=== PATIENT | female | born 1940 | race Caucasian/White ===

== ENCOUNTER → 2020-04-02 10:09 | Outpatient (BNVA) | payer MEDICARE, MEDICAID, SELFPAY | PROVIDERS: Family Provider Nurse Practitioner; PCP Nurse Practitioner; Visit Provider Nurse Practitioner | DX: N39.46 Mixed incontinence (principal); F41.9 Anxiety disorder, unspecified; E78.5 Hyperlipidemia, unspecified | CPT/HCPCS: 80053; 80061; 81000; 84443 ==

== ENCOUNTER 2020-04-30 10:27 | Outpatient (CLI) | payer MEDICARE, MEDICAID, SELFPAY ==
--- NOTE | 2020-04-30 10:15 | US_ITS ---
WS: [id number] ULTRASOUND ABDOMEN LIMITED CLINICAL INFORMATION: elevated liver enym COMPARISON: None. FINDINGS: Liver Size: Normal. Craniocaudal length: 10.1 cm. Echogenicity: Coarse Surface nodularity: None. Mass (size and location): None. Bile ducts Intrahepatic ducts: Normal. Common bile duct diameter: 0.2 cm. Gallbladder Normal. Gallstones: None. Gallbladder sludge: None. Gallbladder wall thickening: None. Pericholecystic fluid: None. Sonographic Osborne sign: Absent. Pancreas Normal as visualized. Right kidney: Normal. Hydronephrosis: None. Size: 10.0 cm x 4.3 cm x 4.0 cm. Abdominal aorta and IVC Visualized portions are normal. Ascites: None. US/US liver [id number] IMPRESSION: 1. Mild diffuse fatty infiltration liver. 2. Normal gallbladder. 3. No hydronephrosis right kidney.
[2020-04-30 13:15] LABS: Hepatitis A Antibody IgM Non-Reactive (Nonreactive); Hepatitis B Core AB, Total Non-Reactive (Nonreactive); Hepatitis B Surface AB 4.1 (0-8.5); Hepatitis B Surface Antigen Non-Reactive (Nonreactive); Hepatitis C Virus Antibody Non-Reactive (Nonreactive)
== END 2020-04-30 10:28 | disposition home or self-care (01) ==
LOC: RAD 10:32
PROVIDERS: PCP Nurse Practitioner; Visit Provider Nurse Practitioner
DX: R74.8 Abnormal levels of other serum enzymes (principal); K76.0 Fatty (change of) liver, not elsewhere classified
CPT/HCPCS: 36415; 76705; 86705; 86706; 86709; 86803; 87340

== ENCOUNTER → 2020-05-29 14:12 | Outpatient (BNVA) | payer MEDICARE, MEDICAID, SELFPAY | PROVIDERS: PCP Nurse Practitioner; Visit Provider Nurse Practitioner Family | DX: Z11.59 Encounter for screening for other viral diseases (principal) | CPT/HCPCS: 87635 ==

== ENCOUNTER → 2020-10-14 10:40 | Outpatient (BNVA) | payer MEDICARE, MEDICAID, SELFPAY | PROVIDERS: PCP Nurse Practitioner; Visit Provider Nurse Practitioner | DX: I10 Essential (primary) hypertension (principal); N39.46 Mixed incontinence | CPT/HCPCS: 80053; 80061; 81000; 84443 ==

== ENCOUNTER → 2021-01-15 14:20 | Outpatient (BNVA) | payer MEDICARE, MEDICAID, SELFPAY | PROVIDERS: PCP Nurse Practitioner; Referring Provider Nurse Practitioner; Visit Provider Nurse Practitioner Family | DX: N39.46 Mixed incontinence (principal) | CPT/HCPCS: 81003 ==

== ENCOUNTER → 2021-05-04 09:59 | Outpatient (BNVA) | payer MEDICARE, MEDICAID, SELFPAY | PROVIDERS: PCP Nurse Practitioner; Visit Provider Internal Medicine Cardiovascular Disease | DX: I10 Essential (primary) hypertension (principal); Z86.73 Personal history of transient ischemic attack (TIA), and cerebral infarction without residual deficits; R09.89 Other specified symptoms and signs involving the circulatory and respiratory systems | CPT/HCPCS: 80048 ==

== ENCOUNTER 2021-05-25 08:45 | Outpatient (CLI) | payer MEDICARE, MEDICAID, SELFPAY ==
--- NOTE | 2021-05-25 09:30 | USCV_ITS ---
Geno Jones Age: 80 Gender: F : 1940 Exam Date: 05/25/2021 09:20 Ordering Phys: Bailey Ortiz Technologist: Kelli Angelo [place]am Location[place] [facility] [place]ication: HISTORY OF CVA BP: 130 / 64 HR: 50 Rhythm: Sinus Technical Quality: Adequate MEASUREMENTS (Male / Female) Normal Values 2D ECHO LV Diastolic Diameter PLAX 3.5 cm 4.2 - 5.9 / 3.9 - 5.3 cm LV Systolic Diameter PLAX 2.2 cm LV Chamber Size 3.3 cm IVS Diastolic Thickness 2.0 cm 0.6 - 1.0 / 0.6 - 0.9 cm IVS Systolic Thickness 1.6 cm LVPW Diastolic Thickness 1.7 cm 0.6 - 1.0 / 0.6 - 0.9 cm LVPW Systolic Thickness 1.7 cm RV Chamber Size 3.2 cm LVOT Diameter 2.1 cm LV Ejection Fraction 2D Teich 69.3 % LV Ejection Fraction MOD 2C 3.2 % LV Ejection Fraction 2C AL 4.4 % LA Diameter 4.5 cm LA Width 3.2 cm LA Height 5.9 cm RA Width 4.6 cm RA Height 4.9 cm Aorta at Sinotubular Diameter 3.2 cm M-MODE LV Diastolic Diameter MM 5.3 cm 4.2 - 5.9 / 3.9 - 5.3 cm LV Systolic Diameter MM 2.8 cm LV Ejection Fraction MM Teich 78.1 % IVS Diastolic Thickness MM 1.1 cm 0.6 - 1.0 / 0.6 - 0.9 cm IVS Systolic Thickness MM 1.8 cm LVPW Diastolic Thickness MM 1.2 cm 0.6 - 1.0 / 0.6 - 0.9 cm LVPW Systolic Thickness MM 2.0 cm Aortic Annulus Diameter 3.0 cm LA Ao Ratio MM 1.8 MV E Point Septal Separation 0.4 cm DOPPLER AV Peak Velocity 236.0 cm/s LVOT Peak Velocity 164.0 cm/s AV Area Cont Eq vti 2.1 cm squared AV Area Cont Eq pk 2.4 cm squared MV Area PHT 1.4 cm squared Mitral E to A Ratio 1.2 MV E' Velocity 95.5 cm/s Mitral E to MV E' Ratio 33.2 Mitral E to LV E' Lateral Ratio 37.1 Mitral E to LV E' Septal Ratio 29.9 TR Peak Velocity 267.8 cm/s TR Peak Gradient 28.7 mmHg TR Mean Velocity 214.6 cm/s TR Mean Gradient 20.1 mmHg TR Velocity Time Integral 101.4 cm TV Peak E Velocity 59.0 cm/s Right Atrial Pressure 3.0 mmHg Pulmonary Artery Systolic Pressu 31.7 mmHg PV Peak Velocity 66.0 cm/s RV Acceleration Time 0.1 s RV Ejection Time 0.4 s RV AcT/ET 0.4 FINDINGS Left Ventricle Normal left ventricular size and systolic function, EF 78 %. Moderate left ventricular hypertrophy. No regional wall motion abnormalities. Right Ventricle The right ventricle is normal in size and function. Right Atrium The right atrium is normal in size. Left Atrium Mildly increased left atrial size. Mitral Valve Thickened mitral valve. Moderate mitral valve regurgitation. Moderate mitral annular calcification. Aortic Valve Thickened aortic valve. Tricuspid Valve Trace tricuspid valve regurgitation. Pulmonic Valve No gross abnormalities noted Pericardium Normal pericardium without effusion. Aorta Normal ascending aorta dimension. CONCLUSIONS Normal left ventricular size and systolic function, EF 78 %. Moderate left ventricular hypertrophy. No regional wall motion abnormalities. Thickened mitral valve. Moderate mitral valve regurgitation. Moderate mitral annular calcification. Mildly increased left atrial size. Mild aortic valve stenosis with a valve area of 2.1 cm squared Trace tricuspid valve regurgitation. Estimated pulmonary artery peak systolic pressure was 32 mmHg There is no pericardial effusion. There are no intracardiac masses. Compared to the previous study from 07/24/2019, there is development of mild aortic valve stenosis Dr Silva Renner MD [facility] (Electronically Signed) Final Date: 25 May 2021 16:48 S
--- NOTE | 2021-05-25 10:15 | USCV_ITS ---
Geno Jones Age: 80 Gender: F : 1940 Exam Date: 05/25/2021 09:00 Ordering Phys: Bailey Ortiz Technologist: Kelli Angelo Exam Location: [facility] – [place] Indication: CVA HISTORY Risk Factors: Unknown Previous Vascular Surgery: Unknown Right Brachial BP: / Left Brachial BP: / Right Left Velocity (cm/s) Spectral Plaque Velocity (cm/s) Spectral Plaque Syst/Diast Broadening Syst/Diast Broadening 97.00/ 22.10 Prox CCA 73.00 / 18.70 47.30/ 8.50 Hetro Mid CCA 49.70 / 12.90 57.80/ 13.80 Hetro Distal CCA 44.40 / 14.30 Hetro 51.10/ 14.10 Hetro Prox ICA 53.20 / 15.80 Hetro 76.70/ 20.20 Mid ICA 104.50/ 31.50 76.70/ 20.20 Distal ICA 141.70/ 40.30 104.30 Hetro ECA 78.90 1.62 ICA/CCA 2.85 Antegrade Vertebral Antegrade 29.30/ 3.60 cm/s 34.70/ 7.60 cm/s Bi Subclavian Bi 113.2 115.2 0 0 FINDINGS Mild to moderate plaquesat the bifurcations bilaterally Elevated velocity in the left distal ICA Antegrade flow in the vertebral arteries bilaterally. Normal Doppler flow velocities in the external carotid, subclavian and vertebral arteries bilaterally CONCLUSIONS 1. Mild to moderate plaques at the bifurcations with elevated velocities, suggestive of less than 50% stenosis 2. Elevated velocity in the left distal ICA, may suggest hemodynamically significant stenosis. Consider CTA to better evaluate the distal artery, if clinically indicated. 3. Consider CTA, if clinically indicated, to better evaluate the distal artery Dr Silva Renner MD [facility] (Electronically Signed) Final Date: 25 May 2021 15:02 S
== END 2021-05-25 08:46 | disposition home or self-care (01) ==
LOC: US 08:47
PROVIDERS: PCP Nurse Practitioner; Visit Provider Nurse Practitioner Family
DX: I42.2 Other hypertrophic cardiomyopathy (principal); R09.89 Other specified symptoms and signs involving the circulatory and respiratory systems; I65.23 Occlusion and stenosis of bilateral carotid arteries; Z86.73 Personal history of transient ischemic attack (TIA), and cerebral infarction without residual deficits; I08.3 Combined rheumatic disorders of mitral, aortic and tricuspid valves
CPT/HCPCS: 93306; 93880

== ENCOUNTER 2021-06-12 07:46 | Outpatient (CLI) | payer MEDICARE, MEDICAID, SELFPAY ==
--- NOTE | 2021-06-12 08:00 | CT_ITS ---
WS: [id number] Exam: CT angio neck [id number] Date/Time of Exam: 06/12/2021 7:53 AM Reason For Exam: R09.89 - Other specified symptoms and signs involving the... DLP: 875.[address] scans at [facility] use at least one of these dose optimization techniques: automat ed exposure control; mA and/or kV adjustment per patient size (includes targeted exams where dose is matched to clinical indication); or iterative reconstruction. Compared to previous study 08/04/2019. CT angiography of the neck. The neck is evaluated in the axial plane with sagittal, coronal and 3-D r eformatted images following uneventful intravenous administration of contrast. The right and left common carotid arteries are widely patent. There is minimal stenosis of the proxim al left ICA estimated at 20-30%. The right ICA is widely patent. There was no evidence of aneurysm or dissection. The great vessels are patent at the level of the aortic arch. The vertebral arteries are patent. Calcification of the intracranial internal carotid arteries noted. Images of the neck reveal no mass or significant lymphadenopathy. No superior mediastinal lymphadenop athy noted. Upper lung zones are clear. Limited images of the brain demonstrate no mass or acute blee d. CT/CT angio neck [id number] IMPRESSION: 1. Mild stenosis of the proximal left ICA estimated between 20 and 30%. 2. The bilateral common carotid arteries and the right extracranial internal ca rotid artery were patent without critical stenosis or occlusion. 3. The bilateral vertebral arteries are patent. 4. No artery dissection or aneurysm.
[2021-06-12] MEDS: iohexol 350 mg/mL 100 mL Btl IV (08:27)
== END 2021-06-12 07:47 | disposition home or self-care (01) ==
PROVIDERS: PCP Nurse Practitioner; Visit Provider Nurse Practitioner Family
DX: R09.89 Other specified symptoms and signs involving the circulatory and respiratory systems (principal); Z86.73 Personal history of transient ischemic attack (TIA), and cerebral infarction without residual deficits; I65.23 Occlusion and stenosis of bilateral carotid arteries
CPT/HCPCS: 70498; Q9967

== ENCOUNTER → 2021-07-01 15:59 | Outpatient (BNVA) | payer MEDICARE, MEDICAID, SELFPAY | PROVIDERS: PCP Nurse Practitioner; Visit Provider Nurse Practitioner Family | DX: N39.46 Mixed incontinence (principal) | CPT/HCPCS: 81003 ==

== ENCOUNTER 2021-07-28 16:19 | Emergency (ER) | payer MEDICARE, MEDICAID, SELFPAY ==
[2021-07-28 16:35] VITALS: BP 160/71; PULSE 59; RESP 16; TEMP 36.8; O2SAT 94
--- NOTE | 2021-07-28 16:47 | PC.NURSE ---
Noted bruising and discoloration to right lower leg. hurts all the time per pt.
--- NOTE | 2021-07-28 16:51 | USR_ITS ---
PROCEDURE INFORMATION: Exam: US Duplex Right Lower Extremity Veins, Limited Exam date and time: 07/28/2021 4:51 PM Age: 81 years old Clinical indication: Injury or trauma; Fall; Blunt trauma (contusions or hematomas); Right; Lower extremity, lower leg level; Vessel not specified; Additional info: Recent injury; Now swelling/bruising TECHNIQUE: Imaging protocol: Real-time Duplex ultrasound of the Right Lower Extremity with 2-D park scale, color Doppler flow and spectral waveform analysis with image documentation. Limited exam was focused on the right lower extremity veins. COMPARISON: No relevant prior studies available. FINDINGS: Right deep veins: Unremarkable. The common femoral, femoral, proximal profunda femoral and popliteal veins are patent without thrombus. Normal Doppler waveforms. Normal compressibility and/or augmentation response. Right superficial veins: Unremarkable. Saphenofemoral junction is patent without thrombus. Soft tissues: Unremarkable. US/[place] [id number] IMPRESSION: No evidence of deep vein thrombosis. Radiation Dose CTDIVOL = (mGy): DLP = (mGy-cm)
--- NOTE | 2021-07-28 16:52 | ED_ITS ---
Documented by User: LORRI Rosales 07/28/21 16:53 HPI - Extremity Problem General: Chief complaint: Extremity Injury, Lower Stated complaint: Injury to Rt Knee Time Seen by Provider: 07/28/21 16:57 Source: patient Mode of arrival: ambulatory Limitations: no limitations History of Present Illness: HPI Narrative: Patient is a nice 81-year-old female who presents to ED today for evaluation of right lower leg swelling. Patient tells me she injured the extremity approximately a week ago. She states she has been ambulating on the extremity since without much discomfort however noticed over the past 24 to 48 hours swelling to the extremity and a red knot near her tibial plateau. She has also noticed some ecchymosis. She was told she needs to come to ED for DVT r/o. No SOB, chest pain, or difficulty breathing. PFSH ED PFSH: Medical History Anxiety ASHD (arteriosclerotic heart disease) Carotid stenosis, bilateral Dyslipidemia History of CVA (cerebrovascular accident) HTN (hypertension) Hypertrophic cardiomyopathy Mitral regurgitation Mixed incontinence urge and stress Obesity Surgical History History of bladder suspension procedure two time History of hysterectomy for benign disease History of tonsillectomy Family History Other Stroke Social History Smoking and tobacco status: never smoked Alcohol intake: never Marital status: Current occupational status: retired History of recent travel: No Course Vital Signs: Vital signs: Vital Signs Temperature 98.3 F 07/28/21 16:35 Pulse Rate 67 07/28/21 18:11 Respiratory Rate 18 07/28/21 18:11 Blood Pressure 168/77 07/28/21 18:11 Pulse Oximetry 94 07/28/21 18:11 Discharge Plan Discharge Patient Disposition: Home Clinical Impression: Contusion of leg, right Qualifiers: Encounter type: initial encounter Qualified Code(s): S80.11XA - Contusion of right lower leg, initial encounter Condition: Stable Prescriptions: No Action spironolactone 25 mg tablet 25 mg PO DAILY Qty: 30 RF: 5 aspirin 325 mg tablet 325 mg PO DAILY RF: 0 Mucinex DM 30-600 mg tablet extended release 12 hr 1 tab PO Q12H RF: 0 solifenacin 10 mg tablet 10 mg PO DAILY Qty: 30 RF: 6 sertraline [Zoloft] 25 mg tablet 25 mg PO DAILY Qty: 30 RF: 5 cetirizine [Zyrtec] 10 mg tablet 10 mg PO DAILY Qty: 30 RF: 5 clonidine HCl 0.1 mg tablet 0.05 mg PO .HS PRN (Reason: hypertensive emergency) RF: 0 atorvastatin 20 mg tablet 20 mg PO DAILY Qty: 90 RF: 3 metoprolol tartrate 50 mg tablet 50 mg PO BID Qty: 60 RF: 9 losartan 50 mg tablet 75 mg PO DAILY Qty: 45 RF: 6 Discharge Orders: Discharge ED (Routine); Ordered 07/28/21 Ordered By: Miguel A Mckeon Referrals: Dell Castano FNP-C [Primary Care Provider] - Discharge Diet: Regular Discharge Activity: Increase activity as tolerated Patient Instructions: Contusion in Adults (ED) Activity Restrictions/Additional Instructions: Follow-up with medical provider as directed in 7 to 10 days for reevaluation. Rest, ice and elevate right leg to help with symptoms. Continue taking all home medications as previously prescribed. Return to the ER or your medical provider if condition worsens. Please read and understand discharge instructions. Thank you for choosing [facility] for your healthcare needs today. Please realize this is an emergency room and that we are providing you with a medical screening exam and this may not be complete and all inclusive of all the testing and or work up that you may need to determine your ailment or severity of your illness. It is very important that you follow up as instructed or that you return to the Emergency Department should you have concerns or if your condition changes or worsens in any way. Sign Out Sign Out Data: Patient Sign Out occurred on 07/28/21 at 17:07. Patient's care was discussed, and care was transferred from to LORRI Guadalupe. Coding Level of Care Code ED Alcohol Law Enforcement Agent for Chg Fwd Exam Comprehensive Documented by User: LORRI Guadalupe 07/29/21 03:31 HPI - Extremity Problem General: Chief complaint: Extremity Injury, Lower Stated complaint: Injury to Rt Knee Time Seen by Provider: 07/28/21 16:57 History of Present Illness: Associated symptoms: Deny chest pain, fever(s) or rash Review of Systems Const: Denies: fever(s), chills or fatigue Eyes: Denies: change in vision or eye discomfort ENMT: Denies: throat pain, odynophagia, nasal discharge or nasal congestion Card: Denies: chest pain, palpitations, edema, swelling of feet/ankles, dyspnea on exertion or orthopnea Resp: Denies: dyspnea, productive cough or non-productive cough GI: Denies: abdominal pain, nausea, vomiting, diarrhea, constipation or hematochezia : Denies: flank pain, dysuria or hematuria Musc: Reports: extremity pain (Right leg pain-just below knee) and extremity swelling (Right leg swelling just below knee); Denies: neck pain or back pain Skin/Breast: Denies: rash or new lesions Neuro: Denies: headache(s), numbness in extremities or weakness in extremities PFSH ED PFSH: Medical History Anxiety ASHD (arteriosclerotic heart disease) Carotid stenosis, bilateral Dyslipidemia History of CVA (cerebrovascular accident) HTN (hypertension) Hypertrophic cardiomyopathy Mitral regurgitation Mixed incontinence urge and stress Obesity Surgical History History of bladder suspension procedure two time History of hysterectomy for benign disease History of tonsillectomy Family History Other Stroke Social History Smoking and tobacco status: never smoked Alcohol intake: never Marital status: Current occupational status: retired History of recent travel: No Physical Exam Const: COMMON NORMALS: no acute distress, patient oriented x3 and alert GENERAL APPEARANCE: cooperative and comfortable HENMT: COMMON NORMALS: normocephalic HEAD & SCALP: normocephalic MOUTH: Normal oral and palatal mucosa present THROAT: posterior oropharynx normal and uvula midline Neck/C-Spine: COMMON NORMALS: supple GENERAL: Yes normal visual inspection Resp: COMMON NORMALS: normal respiratory effort, No retractions, No use of accessory muscles and clear to auscultation bilaterally AUSCULTATION: clear to auscultation bilaterally Cardio: COMMON NORMALS: regular rate, regular rhythm, S1 normal heart sound present, S2 normal heart sound present, No gallops present (Cardio), No clicks present (Cardio), No murmurs present (Cardio) and Peripheral pulses 2+ throughout RATE: regular rate RHYTHM: regular rhythm HEART SOUNDS: S1 normal heart sound present and S2 normal heart sound present PERIPHERAL PULSES: Peripheral pulses 2+ throughout GI: COMMON NORMALS: Normal to inspection, nondistended, normoactive bowel sounds present, Soft to palpation, non-tender and no masses PALPATION: Yes Soft to palpation : COMMON NORMALS: Yes no CVA tenderness BLADDER/KIDNEY EXAM: Yes no CVA tenderness Back/Pelvis: COMMON NORMALS: no CVA tenderness Extremity: COMMON NORMALS: full ROM, no calf tenderness and no pedal edema NARRATIVE EXTREMITY EXAM: Right lower extremity?inferior to the kneecap?small swollen tender nodule likely a contusion. Patient is able to ambulate with no limp or pain and has full range of motion and right knee as well. GENERAL: Yes normal exam except as noted Neuro: COMMON NORMALS: patient oriented x3 and moves all extremities SENSORIUM/ORIENTATION: Yes alert Skin: GENERAL SKIN EXAM: dry skin Course Vital Signs: Vital signs: Vital Signs Temperature 98.3 F 07/28/21 16:35 Pulse Rate 67 07/28/21 18:11 Respiratory Rate 18 07/28/21 18:11 Blood Pressure 168/77 07/28/21 18:11 Pulse Oximetry 94 07/28/21 18:11 MDM - Extremity (Nontraumatic) MDM Narrative: Medical decision making narrative: Patient is a 81-year-old female comes to the ED with right lower extremity pain and swelling after injury. Patient sent by PCP to rule out blood clot. Patient denies any chest pain or shortness of breath. Patient is able ambulate without any pain and has full range of motion right knee. Small possible contusion inferior to the anterior aspect of the kneecap. No calf tenderness noted. Ultrasound venous duplex of right lower extremity shows no DVT or blood clots. Patient diagnosed with contusion of right leg and discharged home. She is told to rest, ice and elevate right leg to take [id number] Tylenol or Motrin for pain. Follow- up with PCP in 7 to 10 days for reevaluation. Return to ED precautions given. Patient understood and agreed with plan. Imaging Data^: US Vascular: Attestation: I personally reviewed and interpreted this imaging study as follows: Radiologist's impression: Ultrasound venous duplex of right lower extremity?prelim report?no DVT or blood clots seen. Discharge Plan Discharge Patient Disposition: Home Clinical Impression: Contusion of leg, right Qualifiers: Encounter type: initial encounter Qualified Code(s): S80.11XA - Contusion of right lower leg, initial encounter Condition: Stable Prescriptions: No Action spironolactone 25 mg tablet 25 mg PO DAILY Qty: 30 RF: 5 aspirin 325 mg tablet 325 mg PO DAILY RF: 0 Mucinex DM 30-600 mg tablet extended release 12 hr 1 tab PO Q12H RF: 0 solifenacin 10 mg tablet 10 mg PO DAILY Qty: 30 RF: 6 sertraline [Zoloft] 25 mg tablet 25 mg PO DAILY Qty: 30 RF: 5 cetirizine [Zyrtec] 10 mg tablet 10 mg PO DAILY Qty: 30 RF: 5 clonidine HCl 0.1 mg tablet 0.05 mg PO .HS PRN (Reason: hypertensive emergency) RF: 0 atorvastatin 20 mg tablet 20 mg PO DAILY Qty: 90 RF: 3 metoprolol tartrate 50 mg tablet 50 mg PO BID Qty: 60 RF: 9 losartan 50 mg tablet 75 mg PO DAILY Qty: 45 RF: 6 Discharge Orders: Discharge ED (Routine); Ordered 07/28/21 Ordered By: Miguel A Mckeon Referrals: Dell Castano FNP-C [Primary Care Provider] - Discharge Diet: Regular Discharge Activity: Increase activity as tolerated Patient Instructions: Contusion in Adults (ED) Activity Restrictions/Additional Instructions: Follow-up with medical provider as directed in 7 to 10 days for reevaluation. Rest, ice and elevate right leg to help with symptoms. Continue taking all home medications as previously prescribed. Return to the ER or your medical provider if condition worsens. Please read and understand discharge instructions. Thank you for choosing [facility] for your healthcare needs today. Please realize this is an emergency room and that we are providing you with a medical screening exam and this may not be complete and all inclusive of all the testing and or work up that you may need to determine your ailment or severity of your illness. It is very important that you follow up as instructed or that you return to the Emergency Department should you have concerns or if your condition changes or worsens in any way. Sign Out Sign Out Data: Patient Sign Out occurred on 07/28/21 at 17:07. Patient's care was discussed, and care was transferred from to LORRI Guadalupe. Coding Level of Care Code ED Alcohol Law Enforcement Agent for Ajith Fwd Exam Comprehensive
[2021-07-28 18:11] VITALS: BP 168/77; PULSE 67; RESP 18; O2SAT 94
== END 2021-07-28 18:13 | disposition home or self-care (01) ==
PROVIDERS: Emergency Provider Physician Assistant; PCP Nurse Practitioner
DX: S80.11XA Contusion of right lower leg, initial encounter (principal); Z79.82 Long term (current) use of aspirin; E78.5 Hyperlipidemia, unspecified; Z86.73 Personal history of transient ischemic attack (TIA), and cerebral infarction without residual deficits; I10 Essential (primary) hypertension; X58.XXXA Exposure to other specified factors, initial encounter; M79.89 Other specified soft tissue disorders
CPT/HCPCS: 93971; 99281

== ENCOUNTER → 2021-08-11 13:54 | Outpatient (BNVA) | payer MEDICARE, MEDICAID, SELFPAY | PROVIDERS: PCP Nurse Practitioner; Visit Provider Urology | DX: N39.46 Mixed incontinence (principal) | CPT/HCPCS: 81003 ==

== ENCOUNTER → 2021-10-28 10:11 | Outpatient (BNVA) | payer MEDICARE, MEDICAID, SELFPAY | PROVIDERS: PCP Nurse Practitioner; Visit Provider Nurse Practitioner | DX: F41.9 Anxiety disorder, unspecified (principal); J30.89 Other allergic rhinitis; Z86.73 Personal history of transient ischemic attack (TIA), and cerebral infarction without residual deficits | CPT/HCPCS: 80053; 85025 ==

== ENCOUNTER → 2021-12-28 15:27 | Outpatient (BNVA) | payer MEDICARE, MEDICAID, SELFPAY | PROVIDERS: PCP Nurse Practitioner; Visit Provider Nurse Practitioner Family | DX: I34.0 Nonrheumatic mitral (valve) insufficiency (principal); I10 Essential (primary) hypertension | CPT/HCPCS: 99214 ==

== ENCOUNTER → 2022-01-08 10:28 | Outpatient (BNVA) | payer MEDICARE, MEDICAID, SELFPAY | PROVIDERS: PCP Nurse Practitioner; Visit Provider Nurse Practitioner Family | DX: I10 Essential (primary) hypertension (principal); M25.461 Effusion, right knee; M25.561 Pain in right knee; G89.29 Other chronic pain; W19.XXXA Unspecified fall, initial encounter; Z78.9 Other specified health status; M25.661 Stiffness of right knee, not elsewhere classified | CPT/HCPCS: 73562; 80048 ==

== ENCOUNTER 2022-01-27 09:36 | Outpatient (CLI) | payer MEDICARE, MEDICAID, SELFPAY ==
--- NOTE | 2022-01-27 10:15 | MR_ITS ---
WS: [id number] MRI RIGHT KNEE NONCONTRAST TECHNIQUE: Axial PD, coronal PD fat sat, coronal PD, sagittal PD, and sagittal PD fat-sat images obta ined. CLINICAL INFORMATION: M25.461 - Effusion, right knee COMPARISON: None. FINDINGS: Distal quadriceps and patella tendons are intact. Hypertrophic patella. Normal ACL and PCL. Chronic t hinning of the medial and lateral meniscus. Complex tear involving the posterior horn medial meniscus extending to the articular surface. Blunting of the medial meniscus with peripheral extrusion. Benita l lateral meniscus. 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 Hyper trophic patella. Advanced chondromalacia patella. Medial and lateral patellar retinaculum are intact. Lobulated popliteal cyst measuring 1.8 x 2.0 x 4.9 CM. Nondisplaced fracture involving the anterior l ateral tibial plateau with associated edema. Minimal depression measuring 2 to 3 mm. Degenerative wendy ma involving the medial tibial plateau. LCL is intact. Normal popliteus tendon. Fluid and edema along the deep and superficial fibers of the MCL consistent with ligamentous injury. MCL appears grossly intact. MR/MR knee RT wo con* [id number] IMPRESSION: 1. Minimally depressed acute anterolateral tibial plateau fracture with diffus e edema. Depression measures 2-3 mm. Recommend correlation with anterolateral t ibial pain. 2. ACL and PCL are intact. 3. Complex tear involving the posterior horn medial meniscus extending to the articular surface. Peripheral extrusion of the medial meniscus. 4. Advanced tricompartmental arthritis with hypertrophic changes along the jenn nt line. 5. Grade 2 MCL ligamentous injury with fluid and edema along the deep superfic ial and deep fibers. MCL appears grossly intact. 6. LCL and popliteus are intact. 7. Lobulated popliteal cyst measuring 1.8 x 2.0 x 4.9 CM. Outbridge grading: grade III: partial-thickness cartilage loss with focal ulcer ation
== END 2022-01-27 09:37 | disposition home or self-care (01) ==
LOC: RAD 09:43
PROVIDERS: PCP Nurse Practitioner; Visit Provider Nurse Practitioner Family
DX: M25.461 Effusion, right knee (principal); S82.141A Displaced bicondylar fracture of right tibia, initial encounter for closed fracture; R60.0 Localized edema; S83.231A Complex tear of medial meniscus, current injury, right knee, initial encounter; X58.XXXA Exposure to other specified factors, initial encounter; M71.21 Synovial cyst of popliteal space [Baker], right knee
CPT/HCPCS: 73721

== ENCOUNTER 2022-02-03 14:58 | Outpatient (CLI) | payer MEDICARE, MEDICAID, SELFPAY | END 2022-02-03 14:59 | disposition home or self-care (01) | LOC: SPT 14:59 | PROVIDERS: PCP Nurse Practitioner; Visit Provider Specialist | DX: Z46.89 Encounter for fitting and adjustment of other specified devices (principal); S82.141D Displaced bicondylar fracture of right tibia, subsequent encounter for closed fracture with routine healing; X58.XXXD Exposure to other specified factors, subsequent encounter | CPT/HCPCS: 27532; 97760; L1832 ==

== ENCOUNTER → 2022-03-10 14:12 | Outpatient (BNVA) | payer MEDICARE, MEDICAID, SELFPAY | PROVIDERS: PCP Nurse Practitioner; Visit Provider Specialist | DX: S82.121D Displaced fracture of lateral condyle of right tibia, subsequent encounter for closed fracture with routine healing (principal); X58.XXXD Exposure to other specified factors, subsequent encounter | CPT/HCPCS: 73562 ==

== ENCOUNTER → 2022-04-26 13:12 | Outpatient (BNVA) | payer MEDICARE, MEDICAID, SELFPAY | PROVIDERS: PCP Nurse Practitioner; Visit Provider Specialist | DX: M17.11 Unilateral primary osteoarthritis, right knee (principal) | CPT/HCPCS: 20610; 73560; 73562; 73565; 99213; J7326 ==

== ENCOUNTER 2022-05-18 15:37 | Outpatient (CLI) | payer MEDICARE, MEDICAID, SELFPAY ==
--- NOTE | 2022-05-18 15:45 | USCV_ITS ---
Geno Jones Age: 81 Gender: F : 1940 Exam Date: 05/18/2022 15:59 Ordering Phys: Bailey Ortiz Technologist: ARASH [place]am [place] [facility] [place]: MR, AI BP: 170 / 67 HR: 66 Rhythm: Sinus Technical Quality: ADEQUATE MEASUREMENTS (Male / Female) Normal Values 2D ECHO LV Diastolic Diameter PLAX 2.3 cm 4.2 - 5.9 / 3.9 - 5.3 cm LV Systolic Diameter PLAX 1.2 cm IVS Diastolic Thickness 2.5 cm 0.6 - 1.0 / 0.6 - 0.9 cm IVS Systolic Thickness 2.6 cm LVPW Diastolic Thickness 1.4 cm 0.6 - 1.0 / 0.6 - 0.9 cm LVPW Systolic Thickness 2.0 cm LVOT Diameter 2.0 cm LV Ejection Fraction 2D Teich 80.1 % LV Ejection Fraction MOD 2C 51.6 % LV Ejection Fraction 2C AL 52.7 % LA Diameter 5.0 cm RA Width 3.4 cm RA Height 4.6 cm Aorta at Sinotubular Diameter 2.3 cm M-MODE Aortic Annulus Diameter 2.5 cm LA Ao Ratio MM 2.0 DOPPLER AV Peak Velocity 420.0 cm/s LVOT Peak Velocity 271.0 cm/s AV Area Cont Eq vti 2.0 cm squared AV Area Cont Eq pk 2.0 cm squared MV Area PHT 1.7 cm squared Mitral E to A Ratio 0.8 MV E' Velocity 71.0 cm/s Mitral E to MV E' Ratio 39.8 Mitral E to LV E' Lateral Ratio 43.5 Mitral E to LV E' Septal Ratio 37.6 TR Peak Velocity 329.0 cm/s TR Peak Gradient 43.3 mmHg Right Atrial Pressure 5.0 mmHg Pulmonary Artery Systolic Pressu 48.3 mmHg PV Peak Velocity 78.0 cm/s FINDINGS Left Ventricle Normal left ventricular size, systolic function and moderately increased wall thickness, with no regional wall motion abnormalities. Moderate concentric left ventricular hypertrophy. Left ventricular ejection fraction is estimated at 70 %. Grade II diastolic dysfunction, moderately elevated filling pressures. Sigmoid shaped septum. Right Ventricle Normal right ventricular size and systolic function. Right ventricular systolic pressure 46 mmHg. Right Atrium Normal right atrial size. Left Atrium Moderately increased left atrial size. Mitral Valve Moderate mitral annular calcification. No mitral valve stenosis. Mild mitral valve regurgitation. Aortic Valve Moderately thickened and calcified aortic valve. Flow acceleration noted in LVOT. There is some degree of LVOT obstruction. However, doppler assessment of aortic valve is not accurate. Tricuspid Valve Structurally normal tricuspid valve. Pulmonic Valve Pulmonic valve not well visualized. Trace pulmonary valve regurgitation. Pericardium No pericardial effusion. Aorta Normal size aortic root and proximal ascending aorta. IVC Normal inferior vena cava. CONCLUSIONS 1. Normal left ventricular size, systolic function and moderately increased wall thickness, with no regional wall motion abnormalities. Moderate concentric left ventricular hypertrophy. Left ventricular ejection fraction is estimated at 70 %. Grade II diastolic dysfunction, moderately elevated filling pressures. 2. Moderately thickened and calcified aortic valve. Flow acceleration noted in LVOT. Doppler assessment of aortic valve is not accurate. No significant aortic stenosis. 3. Pulmonary artery pressure estimated at 46 mm Hg. 4. When compared to study dated 05/25/2021, there may not have been any significant change. 5. Repeat study with better assessment of aortic valve, LVOT and mid LV cavity is recommended. Khloe Dodd MD (Electronically Signed) Final Date: 24 May 2022 18:14 S
== END 2022-05-18 15:38 | disposition home or self-care (01) ==
LOC: RAD 15:38
PROVIDERS: PCP Nurse Practitioner; Visit Provider Nurse Practitioner Family
DX: I08.0 Rheumatic disorders of both mitral and aortic valves (principal)
CPT/HCPCS: 93306

== ENCOUNTER → 2022-06-18 10:02 | Outpatient (BNVA) | payer MEDICARE, MEDICAID, SELFPAY | PROVIDERS: PCP Nurse Practitioner; Visit Provider Nurse Practitioner | DX: F41.9 Anxiety disorder, unspecified (principal); I65.23 Occlusion and stenosis of bilateral carotid arteries; Z86.73 Personal history of transient ischemic attack (TIA), and cerebral infarction without residual deficits; I10 Essential (primary) hypertension | CPT/HCPCS: 80053; 80061; 82607; 84443 ==

== ENCOUNTER 2022-08-26 10:56 | Outpatient (CLI) | payer MEDICARE, MEDICAID, SELFPAY ==
--- NOTE | 2022-08-26 11:15 | USCV_ITS ---
Geno Jones Age: 82 Gender: F : 1940 Exam Date: 08/26/2022 11:23 Ordering Phys: Bailey Ortiz Technologist: Anders Short [place]am Location[place] [facility] [place] Indication: systolic murmur BP: 170 / 67 HR: 68 Rhythm: Sinus Technical Quality: Adequate MEASUREMENTS (Male / Female) Normal Values 2D ECHO LV Diastolic Diameter PLAX 2.5 cm 4.2 - 5.9 / 3.9 - 5.3 cm LV Systolic Diameter PLAX 1.8 cm IVS Diastolic Thickness 0.9 cm 0.6 - 1.0 / 0.6 - 0.9 cm IVS Systolic Thickness 1.2 cm LVPW Diastolic Thickness 0.8 cm 0.6 - 1.0 / 0.6 - 0.9 cm LVPW Systolic Thickness 1.4 cm LVOT Diameter 2.0 cm LV Ejection Fraction 2D Teich 60.3 % LV Ejection Fraction MOD 2C 66.0 % LV Ejection Fraction 2C AL 68.3 % LA Diameter 3.6 cm LA Width 3.8 cm LA Height 4.9 cm RA Width 2.7 cm RA Height 4.2 cm Aorta at Sinotubular Diameter 1.9 cm IVC Diameter 1.3 cm M-MODE Aortic Annulus Diameter 2.8 cm LA Ao Ratio MM 1.1 MV E Point Septal Separation 0.3 cm DOPPLER AV Peak Velocity 299.0 cm/s LVOT Peak Velocity 230.3 cm/s AV Area Cont Eq vti 2.4 cm squared AV Area Cont Eq pk 2.4 cm squared MV Peak Velocity 198.0 cm/s MV Area PHT 2.3 cm squared Mitral E to A Ratio 0.8 MV E' Velocity 58.5 cm/s Mitral E to MV E' Ratio 18.0 Mitral E to LV E' Lateral Ratio 14.9 Mitral E to LV E' Septal Ratio 22.9 TR Peak Velocity 275.0 cm/s TR Peak Gradient 30.3 mmHg TR Mean Velocity 209.7 cm/s TR Mean Gradient 20.2 mmHg TR Velocity Time Integral 88.0 cm Right Atrial Pressure 3.0 mmHg Pulmonary Artery Systolic Pressu 33.3 mmHg PV Peak Velocity 76.0 cm/s RV Acceleration Time 0.1 s RV Ejection Time 0.2 s RV AcT/ET 0.5 FINDINGS Left Ventricle Normal left ventricular size and systolic function, EF 70 %. Moderate to severe concentric left ventricular hypertrophy. No regional wall motion abnormalities. Grade I/IV diastolic dysfunction (abnormal relaxation filling pattern), normal to mildly elevated filling pressures. Right Ventricle The right ventricle is normal in size and function. Right Atrium The right atrium is normal in size. Left Atrium Mildly increased left atrial size. Mitral Valve Thickened mitral valve. Moderate mitral annular calcification. Mild-moderate mitral valve regurgitation. Aortic Valve Moderate aortic valve calcification. Mild aortic valve stenosis with a valve area of 2.4 cm squared. Peak velocity of 2.99 m/s Tricuspid Valve Mild tricuspid valve regurgitation. Pulmonic Valve No gross abnormalities noted Pericardium Normal pericardium without effusion. Aorta Normal aortic annulus size. IVC The inferior vena cava appears normal. CONCLUSIONS Normal left ventricular size and systolic function, EF 70 %. Moderate to severe concentric left ventricular hypertrophy. No regional wall motion abnormalities. Grade I/IV diastolic dysfunction (abnormal relaxation filling pattern), normal to mildly elevated filling pressures. Mild aortic valve stenosis with a valve area of 2.4 cm squared. Peak velocity of 2.99 m/s. Moderate aortic valve calcification. Mildly increased left atrial size. Thickened mitral valve. Moderate mitral annular calcification. Mild-moderate mitral valve regurgitation. Mild tricuspid valve regurgitation. Estimated pulmonary artery peak systolic pressure 33 mmHg There is no pericardial effusion. There are no intracardiac masses. Compared to the study from 05/25/2021, there may not be a significant change Dr Silva Renner MD [facility] (Electronically Signed) Final Date: 27 August 2022 20:27 S
== END 2022-08-26 10:57 | disposition home or self-care (01) ==
LOC: RAD 11:01
PROVIDERS: PCP Nurse Practitioner; Visit Provider Nurse Practitioner Family
DX: R09.89 Other specified symptoms and signs involving the circulatory and respiratory systems (principal); I42.2 Other hypertrophic cardiomyopathy; R01.1 Cardiac murmur, unspecified; I08.3 Combined rheumatic disorders of mitral, aortic and tricuspid valves
CPT/HCPCS: 93306

== ENCOUNTER → 2022-09-21 12:53 | Outpatient (BNVA) | payer MEDICARE, MEDICAID, SELFPAY | PROVIDERS: PCP Nurse Practitioner; Visit Provider Internal Medicine Cardiovascular Disease | DX: I10 Essential (primary) hypertension (principal); E03.8 Other specified hypothyroidism; Z86.73 Personal history of transient ischemic attack (TIA), and cerebral infarction without residual deficits; I42.2 Other hypertrophic cardiomyopathy; E66.9 Obesity, unspecified; Z68.31 Body mass index [BMI] 31.0-31.9, adult; E78.5 Hyperlipidemia, unspecified; I25.10 Atherosclerotic heart disease of native coronary artery without angina pectoris; I34.0 Nonrheumatic mitral (valve) insufficiency; I65.23 Occlusion and stenosis of bilateral carotid arteries | CPT/HCPCS: 99213 ==

== ENCOUNTER → 2022-09-29 10:31 | Outpatient (BNVA) | payer MEDICARE, MEDICAID, SELFPAY | PROVIDERS: PCP Nurse Practitioner; Visit Provider Nurse Practitioner | DX: I10 Essential (primary) hypertension (principal); E03.8 Other specified hypothyroidism; F41.9 Anxiety disorder, unspecified | CPT/HCPCS: 80048; 81000; 84443 ==

== ENCOUNTER → 2022-12-21 12:00 | Outpatient (BNVA) | payer MEDICARE, MEDICAID, SELFPAY | PROVIDERS: PCP Nurse Practitioner; Visit Provider Internal Medicine Cardiovascular Disease | DX: Z86.73 Personal history of transient ischemic attack (TIA), and cerebral infarction without residual deficits (principal); Z79.82 Long term (current) use of aspirin; I42.2 Other hypertrophic cardiomyopathy; I10 Essential (primary) hypertension; E66.9 Obesity, unspecified; Z68.31 Body mass index [BMI] 31.0-31.9, adult; E78.5 Hyperlipidemia, unspecified; I25.10 Atherosclerotic heart disease of native coronary artery without angina pectoris; I34.0 Nonrheumatic mitral (valve) insufficiency; I65.23 Occlusion and stenosis of bilateral carotid arteries | CPT/HCPCS: 99214 ==

== ENCOUNTER → 2023-02-21 08:21 | Outpatient (BNVA) | payer MEDICARE, MEDICAID, SELFPAY | PROVIDERS: PCP Nurse Practitioner; Visit Provider Nurse Practitioner | DX: E03.8 Other specified hypothyroidism (principal) | CPT/HCPCS: 80053; 81000; 84443 ==

== ENCOUNTER → 2023-04-26 12:31 | Outpatient (BNVA) | payer MEDICARE, MEDICAID, SELFPAY | PROVIDERS: PCP Nurse Practitioner; Visit Provider Internal Medicine Cardiovascular Disease | DX: I25.10 Atherosclerotic heart disease of native coronary artery without angina pectoris (principal); Z86.73 Personal history of transient ischemic attack (TIA), and cerebral infarction without residual deficits; I42.2 Other hypertrophic cardiomyopathy; E66.9 Obesity, unspecified; E78.5 Hyperlipidemia, unspecified; I10 Essential (primary) hypertension; I34.0 Nonrheumatic mitral (valve) insufficiency; I65.23 Occlusion and stenosis of bilateral carotid arteries; Z68.31 Body mass index [BMI] 31.0-31.9, adult | CPT/HCPCS: 99213 ==

== ENCOUNTER 2023-07-05 16:15 | Emergency (ER) | payer MEDICARE, MEDICAID, SELFPAY ==
[2023-07-05] VITALS (13 sets, daily range): BP systolic 79–132; BP diastolic 52–80; PULSE 87–105; RESP 17–27; TEMP 37.2; O2SAT 82–94; BMI 31.6
--- NOTE | 2023-07-05 16:40 | XRR_ITS ---
PROCEDURE INFORMATION: Exam: XR Chest Exam date and time: 07/05/2023 4:52 PM Age: 83 years old Clinical indication: Shortness of breath; Additional info: SOB TECHNIQUE: Imaging protocol: Radiologic exam of the chest. Views: 1 view. COMPARISON: CR XR chest 1V [id number] 08/04/2019 4:26 AM FINDINGS: Lungs: Unremarkable. No consolidation. Pleural spaces: Unremarkable. No pleural effusion. No pneumothorax. Heart/Mediastinum: Hiatal hernia. The heart size is upper normal. Bones/joints: Thoracic curvature or kyphosis. XR/XR chest 1V portable [id number] IMPRESSION: No acute findings.
--- NOTE | 2023-07-05 17:14 | ED_ITS ---
HPI - SOB/Dyspnea General: Chief Complaint: Shortness of Breath/Dyspnea Stated Complaint: SOB,body aches,low energy,chest discomfort Time Seen by Provider: 07/05/23 16:17 Source: patient and family Mode of arrival: ambulatory Limitations: no limitations History of Present Illness: HPI Narrative: Patient is a 83-year-old female who presents to ED today with complaint of body aches and shortness of breath. Patient states approximately 12 days ago she went to her primary care provider with a complaint of just not feeling well. She had a COVID test performed which was positive. Patient states she was placed on Paxlovid. She finished the 5-day course of this. She reportedly at some point went back to her primary care provider to be re-tested for COVID make sure infection had cleared and was reportedly still positive. Patient states since then she has continued to have body aches and feels short of breath mainly with exertion. She feels like she has to stop and rest often which is abnormal for her. She does report a mild discomfort in the middle of her chest. Denies lower extremity swelling or calf pain. She has not been running fevers. She has no abdominal pain, vomiting, diarrhea. No urinary symptoms. PMH significant for dyslipidemia, hypertension, hypertrophic obstructive cardiomyopathy, coronary disease, obesity, mitral regurgitation, aortic st enosis, carotid disease, hypothyroidism.? MD elicited complaint: shortness of breath Onset (ago): day(s) Context: other (recent COVID) Timing: constant Severity: moderate Exacerbating factors: exertion Relieving factors: rest Associated symptoms: Reports chest pain; Deny abdominal pain, chest congestion, dizziness, extremity pain, fever(s), hemoptysis, lightheadedness, nausea, orthopnea, palpitations, syncope or vomiting Treatment prior to arrival: none Related Data: Home oxygen amount: none Review of Systems Const: Reports: body aches; Denies: fever(s), chills, fatigue or malaise Eyes: Denies: change in vision, blurry vision, photophobia, floaters or seeing flashes ENMT: Denies: throat pain, odynophagia, ear or mastoid pain, nasal discharge, nasal congestion or sinus pain Card: Reports: chest pain and dyspnea on exertion; Denies: palpitations, irregular heart rhythm, edema, swelling of feet/ankles, lightheadedness, syncope, pre-syncope, orthopnea, leg pain with exertion or acrocyanosis Resp: Reports: dyspnea; Denies: productive cough, non-productive cough, wheezing, pain on inspiration, hemoptysis or chest congestion GI: Denies: abdominal pain, nausea, vomiting or diarrhea : Denies: flank pain, difficulty voiding, dysuria or hematuria Musc: Denies: neck pain, back pain, extremity pain or joint pain Skin/Breast: Denies: rash Neuro: Denies: headache(s), numbness in extremities, weakness in extremities, sensory changes or dizziness PFSH ED PFSH: Medical History Adult onset hypothyroidism Anxiety ASHD (arteriosclerotic heart disease) Carotid stenosis, bilateral Dyslipidemia History of CVA (cerebrovascular accident) HTN (hypertension) Hypertrophic cardiomyopathy Mitral regurgitation Mixed incontinence urge and stress Obesity Surgical History History of bladder suspension procedure two time History of hysterectomy for benign disease History of tonsillectomy Family History Other Stroke Social History Smoking and tobacco status: never smoked Second hand smoke exposure: No Smoking risk assessment/counseling performed?: No Alcohol intake: never Desire information about alcohol rehabilitation?: No Counseling given: No Substance/Drug Use: never Desire information about substance/drug rehabilitation?: No Counseling given: No Adopted: No Caregiver/support person: No Lives independently: Yes Household members: none Housing: House Marital status: service: No Current occupational status: retired Do you think of yourself as: Straight/Heterosexual Current gender identity: Female Physical Exam Const: COMMON NORMALS: no acute distress, average body habitus, patient oriented x3, no limitations, alert and well nourished GENERAL APPEARANCE: cooperative ORIENTATION/CONSCIOUSNESS: Yes awake, Yes oriented to person, Yes oriented to place and Yes oriented to time HENMT: COMMON NORMALS: normocephalic and atraumatic HEAD & SCALP: normal to inspection, normocephalic and atraumatic FACE & SINUS: normal facial exam Eye: COMMON NORMALS: Equal, round and reactive pupils present and EOMs intact bilaterally GENERAL EYE: appearance normal, both eyes and all related structures PUPIL: Yes Equal, round and reactive pupils present Neck/C-Spine: COMMON NORMALS: full ROM, no lymphadenopathy, no meningeal signs and no JVD Chest: COMMONS NORMALS: normal inspection of the chest and normal palpation of entire chest wall Resp: COMMON NORMALS: normal respiratory effort and clear to auscultation bilaterally AUSCULTATION: clear to auscultation bilaterally OTHER: satting 88-89% on RA Cardio: COMMON NORMALS: no JVD, regular rate and regular rhythm RATE: regular rate RHYTHM: regular rhythm HEART SOUNDS: Murmur heart sound present GI: COMMON NORMALS: Normal to inspection, nondistended, normoactive bowel sounds present, Soft to palpation and non-tender PALPATION: Yes Soft to palpation Extremity: COMMON NORMALS: normal to inspection, no clubbing, cyanosis or edema, no calf tenderness and no pedal edema GENERAL: Yes normal exam except as noted Neuro: ZOË COMA SCALE: document GCS findings Zoë coma scale eye opening: Spontaneous Zoë coma scale verbal response: Orientated [place] coma scale motor response: Obey commands Zoë coma scale total score: 15 COMMON NORMALS: patient oriented x3, moves all extremities, no focal motor deficits and no sensory deficits noted SENSORIUM/ORIENTATION: Yes alert, Yes oriented to person, Yes oriented to place and Yes oriented to time MENINGEAL SIGNS: Yes no meningeal signs Skin: COMMON NORMALS: no rashes or lesions noted GENERAL SKIN EXAM: no rashes or lesions noted Course Consultations: Consultation #1: Dr. Cade-recommends consult with Dr. Billingsley prior to admission Consultation #2: Dr. Billingsley-recommends transfer for possible catheter directed tPA/thrombectomy Consultation #3: [facility] but [facility] until tomorrow; [facility] did not have identification and records commander provider to perform service until tomorrow evening Additional Consultation(s): [facility]-would place patient on waiting list but states it could be days Vital Signs: Vital signs: Vital Signs Temperature 98.9 F 07/05/23 16:18 Pulse Rate 97 07/05/23 23:00 Respiratory Rate 18 07/05/23 23:00 Blood Pressure 132/75 07/05/23 23:00 Pulse Oximetry 91 07/05/23 23:00 Oxygen Delivery Me thod Nasal Cannula 07/05/23 21:57 Oxygen Flow Rate 2.5 07/05/23 21:57 MDM - SOB/Dyspnea Medical Decision Making Based on patient's history cardiac work-up as well as d-dimer was initially initiated/ordered. D-dimer came back significantly elevated > 20 thus CTA imaging obtained. Patient's initial EKG showing T wave inversions throughout her inferior leads. Her baseline trop elevated at 86. She was attempting to use restroom when she became very lightheaded/dizzy/diaphoretic/pale and had to be lowered to the floor. Repeat EKG obtained showing sinus tachycardia with a RBBB and continued T wave inversions. These EKGs were reviewed by Dr. Zimmerman who shares my suspicion that patient has pulmonary thrombus causing her symptoms and recommended starting her on heparin. CTA imaging resulting showing extensive bilateral pulmonary emboli with evidence of heart strain. BNP is elevated at over 6700. 2 hr trop is slightly higher than baseline with a delta 5.42. I spoke to Dr. Cade who wanted me to consult with Dr. Billingsley and after speaking to him he recommends transfer for possible catheter directed tpa/thrombectomy. Dr. Watters aware of patient throughout her stay and agrees with treatment/work-up here/need for transfer. Spoke to several facilities but eventually [facility] accepted patient. Manager Latin physician spoke to Dr. Watters as they refused to speak to a VADIM. Lab Data 07/05/23 17:36 07/05/23 17:36 Labs/Radiology: Radiology Impressions Chest X-Ray 07/05/23 16:40 IMPRESSION: No acute findings. Chest CTA 07/05/23 18:24 IMPRESSION: 1. Extensive bilateral pulmonary emboli. No saddle embolus. 2. Elevated right heart pressure with an RV/LV ratio of 2.2. ADDENDUM: 07/05/23 [id number] THIS REPORT CONTAINS FINDINGS THAT MAY BE CRITICAL TO PATIENT CARE. The findings were verbally communicated via telephone conference with Chana Best at 9:45 PM CDT on 07/05/2023. The findings were acknowledged and understood. Laboratory Results WBC 11.66 10^3/uL (3.29-11.43) H 07/05/23 17:36 RBC 3.60 10^6/uL (3.85-5.65) L 07/05/23 17:36 Hgb 10.10 g/dL (11.27-16.99) L 07/05/23 17:36 Hct 31.4 % (36-47) L 07/05/23 17:36 MCV 87.2 fl (85-98) 07/05/23 17:36 MCH 28.1 pg (27-33) 07/05/23 17:36 MCHC 32.2 g/dL (30-55) 07/05/23 17:36 RDW 17.4 % (12.1-15.1) H 07/05/23 17:36 Plt Count 38 10^3/cmm (157-399) L 07/05/23 17:36 MPV 10.6 fL (7.4-10.4) H 07/05/23 17:36 Neut % (Auto) 81.0 % 07/05/23 17:36 Lymph % (Auto) 6.4 % 07/05/23 17:36 [place] % (Auto) 9.9 % 07/05/23 17:36 Eos % (Auto) 0.2 % 07/05/23 17:36 Baso % (Auto) 0.4 % 07/05/23 17:36 Neut # (Auto) 9.43 10^3/uL (1.8-7.7) H 07/05/23 17:36 Lymph # (Auto) 0.8 10^3/uL (0.8-4.8) 07/05/23 17:36 [place] # (Auto) 1.2 10^3/uL (0.2-0.9) H 07/05/23 17:36 Eos # (Auto) 0.0 10^3/uL (0.0-0.8) 07/05/23 17:36 Baso # (Auto) 0.1 10^3/uL (0.0-0.1) 07/05/23 17:36 Nucleated RBC % (auto) 0.3 % 07/05/23 17:36 Nucleated RBCs # 0.0 /100WBC 07/05/23 17:36 D-Dimer >= 20.00 ug/mLFEU (0-0.59) H 07/05/23 17:36 Sodium 142 mmol/L (136-145) 07/05/23 17:36 Potassium 3.9 mmol/L (3.5-5.1) 07/05/23 17:36 Chloride 103 mmol/L (98-107) 07/05/23 17:36 Carbon Dioxide 27 mmol/L (22-29) 07/05/23 17:36 Anion Gap 15.9 (5-19) 07/05/23 17:36 BUN 27 mg/dL (8-23) H 07/05/23 17:36 Creatinine 0.7 mg/dL (0.5-0.9) 07/05/23 17:36 GFR Calculation Not Reportable 07/05/23 17:36 Glucose 107 mg/dL (65-115) 07/05/23 17:36 POC Glucose 119 mg/dL (70-110) H 07/05/23 20:13 Calculated Osmolality 300 mOsm/kg (285-295) H 07/05/23 17:36 Calcium 8.6 mg/dL (8.5-10.5) 07/05/23 17:36 Total Bilirubin 1.2 mg/dL (0.15-1.2) 07/05/23 17:36 AST 43 U/L (0-32) H 07/05/23 17:36 ALT 44 U/L (0-33) H 07/05/23 17:36 Alkaline Phosphatase 64 U/L (35-105) 07/05/23 17:36 Troponin T Baseline 86 ng/L (0-10) H 07/05/23 17:36 Troponin T 120 Minute 91.42 ng/L (0-10) H 07/05/23 19:32 Delta Troponin T 5.42 ABS# (0-10) 07/05/23 19:32 NT-Pro-B Natriuret Pep 6720 pg/mL (0-450) H 07/05/23 17:36 Total Protein 6.3 g/dL (6.6-8.7) L 07/05/23 17:36 Albumin 4.0 g/dL (3.5-5.2) 07/05/23 17:36 Globulin 2.3 g/dL (1.3-4.6) 07/05/23 17:36 Procalcitonin 0.08 ng/mL (0-0.5) 07/05/23 17:36 Urine Color Dark yellow (Yellow) 07/05/23 20:12 Urine Appearance Hazy (CLEAR) A 07/05/23 20:12 Urine pH 5 (5-7) 07/05/23 20:12 Ur Specific [place] 1.020 (1.005-1.030) 07/05/23 20:12 Urine Protein Neg (Negative) 07/05/23 20:12 Urine Glucose (UA) Norm (Normal) 07/05/23 20:12 Urine Ketones Negative (Negative) 07/05/23 20:12 Urine Blood 2+ (Negative) H 07/05/23 20:12 Urine Nitrate Negative (Negative) 07/05/23 20:12 Urine Bilirubin 1+ (Negative) H 07/05/23 20:12 Urine Urobilinogen 4 mg/dL (Negative) H 07/05/23 20:12 Ur Leukocyte Esterase Negative (Negative) 07/05/23 20:12 Urine RBC 5-10 /hpf (0-2) H 07/05/23 20:12 Urine WBC None /hpf (0-5) 07/05/23 20:12 Ur Squamous Epith Cells 0-4 /hpf (0-5) H 07/05/23 20:12 Amorphous Sediment 2+ /hpf 07/05/23 20:12 Urine Bacteria 2+ /hpf (NONE) H 07/05/23 20:12 Urine Mucus 2+ /hpf 07/05/23 20:12 All radiology interpretation(s) finalized by discharge Discharge Plan Discharge Patient Disposition: Xfer Short-Term Hosp Clinical Impression: Pulmonary embolism Qualifiers: Pulmonary embolism type: unspecified Chronicity: acute Acute cor pulmonale presence: with acute cor pulmonale Qualified Code(s): I26.09 - Other pulmonary embolism with acute cor pulmonale Condition: Stable Referrals: Dell Castano, PEGA DEVELOPER-C [Primary Care Provider] - Coding Level of Care Code ED Pyrotechnics Press Tender for Ajith Mcneill
[2023-07-05 17:47] LABS: Basophils # 0.1 10^3/uL (0.0-0.1); Basophils % 0.4 %; Eosinophils % 0.2 %; Hematocrit 31.4 % (36-47); Lymphocytes # 0.8 10^3/uL (0.8-4.8); Lymphocytes % 6.4 %; Mean Corpuscular HGB Conc 32.2 g/dL (30-55); Mean Corpuscular Hemoglobin 28.1 pg (27-33); Mean Corpuscular Volume 87.2 fl (85-98); Mean Platelet Volume 10.6 fL (7.4-10.4); Monocytes # 1.2 10^3/uL (0.2-0.9); Monocytes % 9.9 %; Neutrophils # 9.43 10^3/uL (1.8-7.7); Nucleated Red Blood Cells % 0.3 %; Platelet Count 38 10^3/cmm (157-399); Red Cell Distribution Width 17.4 % (12.1-15.1); White Blood Count 11.66 10^3/uL (3.29-11.43)
--- NOTE | 2023-07-05 18:19 | ECG_ITS ---
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 Measurements Intervals [place] Rate: 89 P: 54 LA: 162 QRS: 57 QRSD: 93 T: -78 QT: 378 QTc: 461 Interpretive Statements SINUS RHYTHM ST DEVIATION AND MODERATE T-WAVE ABNORMALITY, CONSIDER INFERIOR ISCHEMIA [-0.1+ mV T-WAVE IN II/aVF] Compared to ECG 08/04/2019 03:48:49 T-wave abnormality now present Possible ischemia now present Left ventricular hypertrophy no longer present ST (T wave) deviation no longer present Electronically Signed On 07-06-2023 7:40:54 CDT by Magdy Marsh M.D. [id number]
[2023-07-05 18:22] LABS: D Dimer >= 20.00 ug/mLFEU (0-0.59); NT Pro B Type Natriuretic Pept 6720 pg/mL (0-450); Procalcitonin 0.08 ng/mL (0-0.5)
--- NOTE | 2023-07-05 18:24 | CTR_ITS ---
PROCEDURE INFORMATION: Exam: CTA Chest With Contrast Exam date and time: 07/05/2023 8:41 PM Age: 83 years old Clinical indication: Shortness of breath and other: Recent covid; Additional info: SOB, pain; Recent covid TECHNIQUE: Imaging protocol: Computed tomographic angiography of the chest with contrast. Exam focused on the arteries. 3D rendering (Not supervised by radiologist): MIP and/or 3D reconstructed images were created by the technologist. Radiation optimization: All CT scans at this facility use at least one of these dose optimization techniques: automated exposure control; mA and/or kV adjustment per patient size (includes targeted exams where dose is matched to clinical indication); or iterative reconstruction. Contrast material: OMNI 350; Contrast volume: 100 ml; Contrast route: INTRAVENOUS (IV); REPORTING DATA: Count of CT and Cardiac NM exams in prior 12 months: This patient has received 0 known CTs and 0 known cardiac nuclear medicine studies in the 12 months prior to the current study. COMPARISON: CT angio chest PE protcl [id number] 07/24/2019 12:20 PM RADIATION DOSE METRICS: Total DLP (mGy-cm): 418 FINDINGS: Pulmonary arteries: Multiple filling defects within lobar, segmental, and smaller artery branches in both lungs. No saddle embolus. Aorta: Unremarkable. No aortic aneurysm. No aortic dissection. The Lungs: Mosaic attenuation throughout both lungs, consistent with shunting related to the pulmonary emboli. Mild atelectasis in the left upper lobe. Pleural spaces: Unremarkable. No pneumothorax. No pleural effusion. Heart: Cardiomegaly. Mitral annulus calcifications. Heart RV/LV ratio: The RV/LV ratio is 2.2. Coronary arteries: Coronary artery calcifications. Lymph nodes: Unremarkable. No enlarged lymph nodes. Liver: Calcified granulomas in the liver. Gallbladder and bile ducts: Sludge in the gallbladder. Spleen: Calcified granulomas in the spleen. Bones/joints: Unremarkable. No acute fracture. Soft tissues: Unremarkable. CT/CT angio chest PE protcl [id number] IMPRESSION: 1. Extensive bilateral pulmonary emboli. No saddle embolus. 2. Elevated right heart pressure with an RV/LV ratio of 2.2.
[2023-07-05 18:34] LABS: Troponin(5th) Baseline 86 ng/L (0-10)
[2023-07-05 18:35] LABS: Alanine Aminotransferase 44 U/L (0-33); Alkaline Phosphatase 64 U/L (35-105); Anion Gap 15.9 (5-19); Aspartate Amino Transferase 43 U/L (0-32); Blood Urea Nitrogen 27 mg/dL (8-23); Calcium 8.6 mg/dL (8.5-10.5); Carbon Dioxide 27 mmol/L (22-29); Chloride 103 mmol/L (98-107); Globulin 2.3 g/dL (1.3-4.6); Glucose 107 mg/dL (65-115); Osmolality Calculated 300 mOsm/kg (285-295); Potassium 3.9 mmol/L (3.5-5.1); Sodium 142 mmol/L (136-145); Total Bilirubin 1.2 mg/dL (0.15-1.2); Total Protein 6.3 g/dL (6.6-8.7)
[2023-07-05] MEDS: ondansetron 2 mg/ML SDV 2 mL 4 MG IVP (19:31)
[2023-07-05] MEDS: aspirin 81 mg Chew Tablet 324 MG PO (19:31)
[2023-07-05 19:54] LABS: Troponin 5 2HR 91.42 ng/L (0-10)
[2023-07-05 19:55] LABS: Troponin 5 2HR Delta 5.42 ABS# (0-10)
--- NOTE | 2023-07-05 20:14 | ECG_ITS ---
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 Measurements Intervals [place] Rate: 106 P: 56 DC: 146 QRS: 85 QRSD: 121 T: 232 QT: 353 QTc: 469 Interpretive Statements SINUS TACHYCARDIA POSSIBLE LEFT ATRIAL ENLARGEMENT [-0.1mV P-WAVE IN V1/V2] RIGHT BUNDLE BRANCH BLOCK [120+ ms QRS DURATION, UPRIGHT V1, 40+ ms S IN I/aVL/V4/V5/V6] ST DEVIATION AND MODERATE T-WAVE ABNORMALITY, CONSIDER LATERAL ISCHEMIA [-0.1+ mV T-WAVE IN I/aVL/V5/V6] ST DEVIATION AND MODERATE T-WAVE ABNORMALITY, CONSIDER INFERIOR ISCHEMIA [-0.1+ mV T-WAVE IN II/aVF] Compared to ECG 07/05/2023 18:19:28 Right bundle-branch block now present Sinus rhythm no longer present T-wave abnormality still present Possible ischemia still present Electronically Signed On 07-06-2023 7:41:52 CDT by Magdy Marsh M.D. [id number]
[2023-07-05 20:17] LABS: Glucose Point of Care 119 mg/dL (70-110)
[2023-07-05] MEDS: sodium chloride 0.9% 500 ML 999 ML IV (20:25)
--- NOTE | 2023-07-05 20:28 | PC.NURSE ---
pt was being walked back from the bathroom by nurse tech, and agronomy technician was waiting by door. when coming back from the bathroom pt began to get dizzy, pt appeared pale and diaphoretic. this nurse was watching from the nurses station and then quickly went over to tech and pt. pt became stiff and was lowered to the ground by the three staff present. Charge nurse came over to help as well as other RNs. pt seemed in a daze. this RN yelled for a doctor and Dr. Watters and Chana Best PA came to assess patient. Pt was put into wheelchair and back into bed. BG was checked and was 119 and pt was put back into bed. This RN, Whit RN, and Kranthi RN were in the room-- pts bp was low with a MAP of 57. Chana Best gave verbal orders for a 500ml bolus of fluid and pressure was rechecked and was 109/62. Pt was wheeled to CT in stable condition.
[2023-07-05] MEDS: iohexol 350 mg/mL 500 mL Btl (per mL) IV (20:53)
[2023-07-05 21:17] LABS: Glucose Urine UA Norm (Normal); Protein Urine Neg (Negative); Urine Appearance Hazy (CLEAR); Urine Color Dark Yellow (Yellow); pH Urine 5 (5-7)
[2023-07-05 21:18] LABS: Add Urine Culture? No; Add Urine Microscopic? YES; Amorphous Sediment Urine 2+ /hpf; Bacteria Urine 2+ /hpf; Bilirubin Urine 1+ (Negative); Blood Urine 2+ (Negative); Ketones Urine Negative (Negative); Leukocyte Esterase Urine Negative (Negative); Mucus Urine 2+ /hpf; Nitrate Urine Negative (Negative); Squamous Epithelial Cell Urine 0-4 /hpf (0-5); Urobilinogen Urine 4 mg/dL (Negative)
[2023-07-05] MEDS: heparin 5,000 unit/mL INJ 1 mL 4000 UNIT IVP (21:45)
[2023-07-05] MEDS: heparin drip 25,000 UNIT/500 ML PREMIX 19.49 UNIT IV (21:47)
[2023-07-06] VITALS (9 sets, daily range): BP systolic 110–130; BP diastolic 61–75; PULSE 92–100; RESP 19–26; O2SAT 86–97
--- NOTE | 2023-07-06 00:11 | ECG_ITS ---
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 Measurements Intervals [place] Rate: 95 P: 54 MS: 136 QRS: 68 QRSD: 91 T: -69 QT: 389 QTc: 491 Interpretive Statements SINUS RHYTHM ST DEVIATION AND MODERATE T-WAVE ABNORMALITY, CONSIDER INFERIOR ISCHEMIA [-0.1+ mV T-WAVE IN II/aVF] Compared to ECG 07/05/2023 20:14:39 Sinus tachycardia no longer present Right bundle-branch block no longer present T-wave abnormality still present Possible ischemia still present Electronically Signed On 07-06-2023 7:42:35 CDT by Magdy Marsh M.D. [id number]
[2023-07-06 00:34] LABS: Troponin 5 6HR 104.5 ng/L (0-10); Troponin 5 6HR Delta 18.5 ng/L (0-12)
--- NOTE | 2023-07-06 01:48 | PC.NURSE ---
[facility] ems declined life threat transport d/t trucks being out on transfers and [place] service [place]. [employer] declined d/t bad weather in travel area.
--- NOTE | 2023-07-06 02:03 | PC.NURSE ---
Report called to Uriel Gil. Report to Edgard Shirley rn on [facility]. Pt going to room 13. Son notified of this information.
--- NOTE | 2023-07-06 04:13 | PC.NURSE ---
Heparin continued with EMS.
== END 2023-07-06 04:25 | disposition short-term general hospital (02) ==
PROVIDERS: Emergency Provider Physician Assistant; PCP Nurse Practitioner
DX: I26.09 Other pulmonary embolism with acute cor pulmonale (principal)
CPT/HCPCS: 36415; 36416; 71045; 71275; 80053; 81001; 82962; 83880; 84145; 84484; 85025; 85378; 93005; 96365; 96366; 96375; 99285; J1644; J2405; J7040; Q9967

== ENCOUNTER → 2023-07-29 11:04 | Outpatient (BNVA) | payer MEDICARE, MEDICAID, SELFPAY | PROVIDERS: PCP Nurse Practitioner; Visit Provider Internal Medicine Cardiovascular Disease | DX: I26.09 Other pulmonary embolism with acute cor pulmonale (principal); I65.23 Occlusion and stenosis of bilateral carotid arteries; I34.0 Nonrheumatic mitral (valve) insufficiency; I10 Essential (primary) hypertension; I25.10 Atherosclerotic heart disease of native coronary artery without angina pectoris; E78.5 Hyperlipidemia, unspecified; E66.9 Obesity, unspecified; Z68.31 Body mass index [BMI] 31.0-31.9, adult; I42.2 Other hypertrophic cardiomyopathy | CPT/HCPCS: 99214 ==

== ENCOUNTER → 2023-08-15 09:13 | Outpatient (BNVA) | payer MEDICARE, MEDICAID, SELFPAY | PROVIDERS: PCP Nurse Practitioner; Visit Provider Nurse Practitioner | DX: I26.99 Other pulmonary embolism without acute cor pulmonale (principal); E03.8 Other specified hypothyroidism; I10 Essential (primary) hypertension; F41.9 Anxiety disorder, unspecified; Z79.899 Other long term (current) drug therapy | CPT/HCPCS: 80053; 80061; 81000; 81241; 84439; 84443; 84481; 85025 ==

== ENCOUNTER 2023-11-16 09:51 | Outpatient (CLI) | payer MEDICARE, MEDICAID, SELFPAY | END 2023-11-16 09:52 | disposition home or self-care (01) | LOC: RT 09:54 | PROVIDERS: PCP Nurse Practitioner; Visit Provider Internal Medicine | DX: I26.99 Other pulmonary embolism without acute cor pulmonale (principal); Z86.16 Personal history of COVID-19 | CPT/HCPCS: 94618 ==

== ENCOUNTER → 2024-02-10 10:03 | Outpatient (BNVA) | payer MEDICARE, MEDICAID, SELFPAY | PROVIDERS: PCP Nurse Practitioner; Visit Provider Internal Medicine Cardiovascular Disease | DX: I65.23 Occlusion and stenosis of bilateral carotid arteries (principal); I34.0 Nonrheumatic mitral (valve) insufficiency; I10 Essential (primary) hypertension; I25.10 Atherosclerotic heart disease of native coronary artery without angina pectoris; E78.5 Hyperlipidemia, unspecified; I42.2 Other hypertrophic cardiomyopathy; R09.89 Other specified symptoms and signs involving the circulatory and respiratory systems; I26.99 Other pulmonary embolism without acute cor pulmonale; E66.9 Obesity, unspecified; Z86.73 Personal history of transient ischemic attack (TIA), and cerebral infarction without residual deficits; Z68.32 Body mass index [BMI] 32.0-32.9, adult | CPT/HCPCS: 99214 ==

== ENCOUNTER → 2024-02-27 10:17 | Outpatient (BNVA) | payer MEDICARE, MEDICAID, SELFPAY | PROVIDERS: PCP Nurse Practitioner; Visit Provider Nurse Practitioner | DX: I10 Essential (primary) hypertension (principal); E78.5 Hyperlipidemia, unspecified; E03.8 Other specified hypothyroidism; D50.8 Other iron deficiency anemias; E55.9 Vitamin D deficiency, unspecified; E61.1 Iron deficiency | CPT/HCPCS: 80053; 80061; 81000; 82306; 82607; 83550; 84443; 85025 ==

== ENCOUNTER → 2024-05-28 13:41 | Outpatient (BNVA) | payer MEDICARE, MEDICAID, SELFPAY | PROVIDERS: PCP Nurse Practitioner; Visit Provider Nurse Practitioner | DX: I10 Essential (primary) hypertension (principal); E55.9 Vitamin D deficiency, unspecified | CPT/HCPCS: 80053; 82306; 85025 ==

== ENCOUNTER → 2024-08-16 11:03 | Outpatient (BNVA) | payer MEDICARE, MEDICAID, SELFPAY | PROVIDERS: PCP Nurse Practitioner; Visit Provider Nurse Practitioner | DX: I10 Essential (primary) hypertension (principal); E55.9 Vitamin D deficiency, unspecified; E03.8 Other specified hypothyroidism | CPT/HCPCS: 80053; 80061; 82306; 84443; 85025 ==

== ENCOUNTER → 2024-09-11 11:00 | Outpatient (BNVA) | payer MEDICARE, MEDICAID, SELFPAY | PROVIDERS: PCP Nurse Practitioner; Visit Provider Nurse Practitioner Family | DX: I10 Essential (primary) hypertension (principal); I25.10 Atherosclerotic heart disease of native coronary artery without angina pectoris; Z86.711 Personal history of pulmonary embolism; I08.0 Rheumatic disorders of both mitral and aortic valves; I42.2 Other hypertrophic cardiomyopathy; I65.23 Occlusion and stenosis of bilateral carotid arteries | CPT/HCPCS: 99214 ==

== ENCOUNTER 2024-12-24 09:31 | Emergency (ER) | payer MEDICARE, MEDICAID, SELFPAY ==
[2024-12-24 09:39] VITALS: BP 139/70; PULSE 66; RESP 18; TEMP 36.6; O2SAT 94; BMI 30.1
--- NOTE | 2024-12-24 09:58 | W.ED.BACK ---
HPI - Back Pain/Injury General: Chief Complaint: Back Pain/Injury Stated Complaint: fall hurt back Time Seen by Provider: 12/24/24 09:36 History of Present Illness: 84-year-old female presents emergency room complaining of low back pain. 2 weeks ago she had a ground-level mechanical fall while carrying some groceries she landed on her left hand and her back. She was not seen after this incident she has her left fifth finger taped she states she thinks she broke that finger. She has continued back pain despite seeing a chiropractor multiple times she has tried wvgi-cry-dlaadwo medications. She is unsure if she has ever been evaluated for a neurosis or if she has any history of compression fractures. She is on Eliquis for atrial fibrillation. She denies striking her head she has not had any headaches or vomiting. She denies any other injuries other than the left hand in the low back. Associated symptoms: Deny abdominal pain, chills, dysuria, fever(s) or urinary urgency Related Data Home Medications ?Medication ?Instructions ?Recorded ?Confirmed acetaminophen [Tylenol] 650 mg PO TID PRN Pain 09/21/22 12/24/24 ferrous sulfate 325 mg (65 mg 325 mg PO DAILY 09/01/23 12/24/24 iron) tablet apixaban 5 mg tablet (Eliquis) 5 mg PO BID 12/24/24 12/24/24 spironolactone 50 mg tablet 50 mg PO QAM 12/24/24 12/24/24 Previous Rx's ?Medication ?Instructions ?Recorded carvedilol 6.25 mg tablet 6.25 mg PO BID #180 tabs 02/20/24 atorvastatin 20 mg tablet 20 mg PO DAILY #100 tabs 08/16/24 cetirizine 10 mg tablet 10 mg PO DAILY #30 tabs 08/16/24 ergocalciferol (vitamin D2) 1,250 1,250 mcg PO .weekly #4 caps 08/16/24 mcg (50,000 unit) capsule levothyroxine 25 mcg tablet 25 mcg PO DAILY #30 tabs 08/16/24 sertraline 50 mg tablet (Zoloft) 50 mg PO DAILY #30 tabs 08/16/24 vibegron 75 mg tablet (Gemtesa) 75 mg PO DAILY #30 tabs 08/16/24 valsartan 40 mg tablet (Diovan) 40 mg PO DAILY #30 tabs 10/20/24 hydrocodone 5 mg-acetaminophen 325 1 tab PO Q6H PRN pain #28 tabs 12/24/24 mg tablet Allergies Allergy/AdvReac Type Severity Reaction Status Date / Time codeine Allergy Unknown ADR-Vomitin Verified 09/21/24 16:35 g Review of Systems Const: Denies: fever(s) or chills Card: Denies: chest pain Resp: Denies: dyspnea GI: Denies: abdominal pain : Denies: dysuria, urinary frequency or urinary urgency Musc: Reports: back pain and extremity pain (Left fifth finger); Denies: neck pain Skin/Breast: Denies: rash PFSH ED PFSH: Medical History Secondary pulmonary hypertension Adult onset hypothyroidism History of CVA (cerebrovascular accident) Early 2020 Anxiety Mixed incontinence urge and stress Hypertrophic cardiomyopathy Obesity Dyslipidemia ASHD (arteriosclerotic heart disease) HTN (hypertension) Mitral regurgitation Carotid stenosis, bilateral Surgical History History of bladder suspension procedure two time History of tonsillectomy History of hysterectomy for benign disease Family History Other Stroke Social History Smoking and tobacco/nicotine status: never used tobacco/nicotine Second hand smoke exposure: No Alcohol intake: never Substance/Drug Use: never Adopted: No Caregiver/support person: No Lives independently: Yes Household members: none Housing: House Marital status: service: No Current occupational status: retired Do you think of yourself as: Straight/Heterosexual Current gender identity: Female Physical Exam Const: COMMON NORMALS: no acute distress GENERAL APPEARANCE: cooperative and comfortable ORIENTATION/CONSCIOUSNESS: Yes awake, Yes oriented to person, Yes oriented to place and Yes oriented to time HENMT: COMMON NORMALS: normocephalic, atraumatic and hearing grossly normal bilaterally HEAD & SCALP: normocephalic and atraumatic Resp: COMMON NORMALS: normal respiratory effort, No retractions, No use of accessory muscles and clear to auscultation bilaterally AUSCULTATION: clear to auscultation bilaterally Cardio: COMMON NORMALS: regular rate, regular rhythm and No murmurs present (Cardio) RATE: regular rate RHYTHM: regular rhythm GI: COMMON NORMALS: Soft to palpation and No hepatosplenomegaly present AUSCULTATION: Yes normoactive bowel sounds PALPATION: Yes Soft to palpation, No Tenderness to palpation present (GI), No Guarding due to palpation present (GI) and Yes No hepatosplenomegaly present Extremity: COMMON NORMALS: normal to inspection, capillary refill normal, no clubbing, cyanosis or edema, no calf tenderness and no pedal edema Neuro: SENSORIUM/ORIENTATION: Yes oriented to person, Yes oriented to place and Yes oriented to time Skin: COMMON NORMALS: no rashes or lesions noted GENERAL SKIN EXAM: no rashes or lesions noted Course Vital Signs: Vital signs: Vital Signs Temperature 97.9 F 12/24/24 09:39 Pulse Rate 63 12/24/24 14:19 Respiratory Rate 16 12/24/24 14:19 Blood Pressure 156/96 12/24/24 14:19 Pulse Oximetry 95 12/24/24 14:19 Oxygen Delivery Me thod Room Air 12/24/24 13:00 MDM - Back Pain/Injury Medical Decision Making New acute lumbar compression fracture at L1. Reviewed w Dr. Broussard. He feels she can be treated as an outpt with a TSLO brace. Pt has no neurodeficiets at this time. Patient pain is well-controlled this time we will discharge her home in the TSLO brace and hydrocodone for pain set up for an outpatient MRI of the thoracic and lumbar spines and follow-up with Dr. Broussard's office. If pain becomes uncontrolled return to the emergency room Medical Records I reviewed the patient's medical records. Labs I reviewed the patient's lab results. Radiology Impressions Lumbar Spine CT 12/24/24 10:04 IMPRESSION: 1. Acute appearing compression fracture L1 vertebral body with retropulsion of the posterior superior cortex resulting in severe central canal stenosis. This could be further evaluated with MRI. 2. Loss of approximately 60 to 70% vertebral body height. 3. Osteopenia Message LEFT for Tom Ahmadi DO at 12/24/2024 11:55 AM. Hand X-Ray 12/24/24 10:05 IMPRESSION: 1. Fractures involving the distal phalanx of the 5th digit. 2. Relatively severe osteoarthritis involving the 1st carpometacarpal joint. All radiology interpretation(s) finalized by discharge Discharge Plan Discharge Patient Disposition: Home Clinical Impression: Lumbar compression fracture, Finger fracture, left Condition: Stable Prescriptions: New hydrocodone-acetaminophen 5-325 mg tablet 1 tab PO Q6H PRN (Reason: pain) Qty: 28 0RF No Action acetaminophen [Tylenol] 650 mg PO TID PRN (Reason: Pain) cetirizine 10 mg tablet 10 mg PO DAILY Qty: 30 5RF atorvastatin 20 mg tablet 20 mg PO DAILY Qty: 100 3RF ergocalciferol (vitamin D2) 1,250 mcg (50,000 unit) capsule 1,250 mcg PO .weekly Qty: 4 2RF levothyroxine 25 mcg tablet 25 mcg PO DAILY Qty: 30 2RF sertraline [Zoloft] 50 mg tablet 50 mg PO DAILY Qty: 30 5RF Gemtesa 75 mg tablet 75 mg PO DAILY Qty: 30 2RF ferrous sulfate 325 mg (65 mg iron) tablet 325 mg PO DAILY carvedilol 6.25 mg tablet 6.25 mg PO BID Qty: 180 3RF Rx Instructions: must administer with a meal/food valsartan [Diovan] 40 mg tablet 40 mg PO DAILY Qty: 30 2RF spironolactone 50 mg tablet 50 mg PO QAM Rx Instructions: TAKE ONE TABLET BY MOUTH EVERY MORNING Eliquis 5 mg tablet 5 mg PO BID Rx Instructions: TAKE ONE TABLET BY MOUTH TWICE DAILY Discharge Orders: Discharge ED (Routine); Ordered 12/24/24 Ordered By: Tom Ahmadi Referrals: Dell Castano, [facility]ST[employer]ER[facility] [Primary Care Provider] - Discharge Diet: Usual diet Discharge Activity: Resume usual activity Patient Instructions: Opioid Safety, Pain Management Activity Restrictions/Additional Instructions: Thank you for choosing [facility] for your healthcare needs today. It is very important that you follow up as instructed or that you return to the Emergency Department should you have concerns or if your condition changes or worsens in any way. You were seen in the emergency room with back pain 2 weeks after a fall. X-ray shows you have a left fifth finger fracture is already starting to heal we will have you follow-up with orthopedics regarding this continue to wear splint. As to your back there is a compression fracture of the first lumbar vertebrae it has caused some narrowing of the spinal canal. We reviewed the films with the orthopedic spine surgeon at this point he does not feel surgery is emergent but will likely need to have some kind of intervention for this fracture. He recommends a TSLO brace (triple back brace). Will arrange for an outpatient MRI of your thoracic and lumbar spine and follow-up with the orthopedic spine surgeon at his clinic. Print Language: Citizen [place] Coding Level of Care Code ED Mapping Editor for Ajith Mcneill
--- NOTE | 2024-12-24 10:04 | CT_ITS ---
WS: [id number] CT LUMBAR SPINE TECHNIQUE: Noncontrast CT of the lumbar spine with coronal and sagittal reformatted images. CLINICAL INFORMATION: back pain - 2 wks after fall COMPARISON: CT 2019 DLP: 821.[address] scans at [facility] use at least one of these dose optimization techniques: automated exposure control; mA and/or kV adjustment per patient size (includes targeted exams where dose is matched to clinical indication); or iterative reconstruction. FINDINGS: Acute appearing compression fracture L1 vertebral body with retropulsion of the posterior superior cortex resulting in severe central canal stenosis. Loss of approximately 60 to 70% vertebral body height. Fracture cleft visualized in the superior endplate. Osteopenia. Surrounding soft tissue edema L2-L3: Mild disc osteophyte complex. Narrowing of the RIGHT subarticular recess. Moderate RIGHT foraminal narrowing. L3-L4: Mild disc osteophyte complex. Mild central canal stenosis. Narrowing of the subarticular recess. Mild foraminal narrowing. Moderate facet arthropathy. L4-L5: Mild central canal stenosis. Moderate facet arthropathy. Mild LEFT foraminal narrowing. L5-S1: LEFT eccentric disc bulging with impingement of the LEFT S1 nerve root. Mild LEFT foraminal narrowing. Lung bases are well aerated. Adrenal glands are normal. Visualized pelvic bony structures: Normal. Paravertebral soft tissues: Normal. CT/CT lumbar spine wo con* [id number] IMPRESSION: 1. Acute appearing compression fracture L1 vertebral body with retropulsion o f the posterior superior cortex resulting in severe central canal stenosis. Thi s could be further evaluated with MRI. 2. Loss of approximately 60 to 70% vertebral body height. 3. Osteopenia Message LEFT for Tom Ahmadi DO at 12/24/2024 11:55 AM.
--- NOTE | 2024-12-24 10:05 | XRR_ITS ---
PROCEDURE INFORMATION: Exam: XR Left Hand Exam date and time: 12/24/2024 10:11 AM Age: 84 years old Clinical indication: Injury or trauma; Fall; Blunt trauma (contusions or hematomas); Hand; Left TECHNIQUE: Imaging protocol: Radiologic exam of the left hand. Views: 3 or more views. COMPARISON: No relevant prior studies available. FINDINGS: Bones/joints: There is an intra-articular fracture involving the distal phalanx of the 5th digit. Fracture fragments are slightly displaced. There also may be a tuft fracture involving the distal phalanx of the 5th digit. No additional fractures are appreciated. There is no evidence of a dislocation. Bony mineralization is decreased. There is joint space narrowing with osteophyte formation involving the 1st carpometacarpal joint. Soft tissues: There is soft tissue swelling involving the 5th digit. XR/XR hand LT min 3V* [id number] IMPRESSION: 1. Fractures involving the distal phalanx of the 5th digit. 2. Relatively severe osteoarthritis involving the 1st carpometacarpal joint.
[2024-12-24] MEDS: ketorolac 30 mg/mL INJ IM (10:43)
[2024-12-24 10:45] VITALS: BP 148/79; PULSE 65; O2SAT 93
[2024-12-24 12:00] VITALS: BP 145/72; PULSE 71; RESP 16; O2SAT 96
[2024-12-24 13:00] VITALS: BP 167/83; PULSE 71; RESP 14; O2SAT 97
[2024-12-24 14:19] VITALS: BP 156/96; PULSE 63; RESP 16; O2SAT 95
--- NOTE | 2024-12-26 09:01 | DCPLANNER ---
Message sent to Aarti for Follow up - MRI Request sent to Centralized Scheduling
== END 2024-12-24 14:18 | disposition home or self-care (01) ==
PROVIDERS: Emergency Provider Family Medicine; PCP Nurse Practitioner
DX: S32.010A Wedge compression fracture of first lumbar vertebra, initial encounter for closed fracture (principal); S62.637A Displaced fracture of distal phalanx of left little finger, initial encounter for closed fracture; Z79.01 Long term (current) use of anticoagulants; E78.5 Hyperlipidemia, unspecified; I10 Essential (primary) hypertension; Z86.73 Personal history of transient ischemic attack (TIA), and cerebral infarction without residual deficits; W19.XXXA Unspecified fall, initial encounter
CPT/HCPCS: 72131; 73130; 96372; 97760; 99284; J1885; L0460

== ENCOUNTER → 2024-12-27 15:27 | Outpatient (BNVA) | payer MEDICARE, MEDICAID, SELFPAY | PROVIDERS: PCP Nurse Practitioner; Visit Provider Orthopaedic Surgery | DX: S32.010A Wedge compression fracture of first lumbar vertebra, initial encounter for closed fracture (principal); X58.XXXA Exposure to other specified factors, initial encounter | CPT/HCPCS: 72100; 99203 ==

== ENCOUNTER 2025-01-07 11:43 | Outpatient (CLI) | payer MEDICARE, MEDICAID, SELFPAY ==
--- NOTE | 2025-01-07 12:15 | MR_ITS ---
WS: [id number] MRI LUMBAR SPINE NONCONTRAST HISTORY: Fell 1 month ago. L1 compression fracture. COMPARISON: CT 12/24/2024 TECHNIQUE: Sagittal and axial multisequence imaging is submitted. Mild increase in thoracic kyphosis. Mild increase in the lumbar lordosis. 2 mm retrolisthesis of L3. L1: Severe compression fracture with marrow edema and loss of height by approximately 70%. Retropulsion of the posterior superior endplate by 8.5 mm. Small amount of marrow edema extends into the posterior elements. There is prevertebral edema. Disc desiccation throughout the lumbar spine. Edema in the T12-L1 and L1-2 disc spaces. Conus terminates normally at L1-2 disc level. T12-L1: Central osseous retropulsion encroaching upon the ventral thecal sac and the conus. There is contact and compression upon the conus. Severe central and bilateral foraminal stenosis. L1-L2: Mild disc bulging and facet arthritis. Mild bilateral foraminal stenosis. L2-L3: Diffuse annular disc bulging with a RIGHT foraminal disc protrusion. Bilateral facet arthritis and foraminal stenosis. Significant encroachment upon the traversing RIGHT L3 nerve root. Moderate RIGHT foraminal stenosis. L3-L4: Slight retrolisthesis of L3. Annular disc bulging with ligamentum flavum and facet arthritis. Mild to moderate central, bilateral subarticular recess and foraminal stenosis. L4-L5: Diffuse annular disc bulging mild asymmetric disc bulging to the LEFT. Ligamentum flavum and facet arthritis. Mild to moderate central with bilateral subarticular recess and foraminal stenosis, LEFT greater than RIGHT. L5-S1: Mild annular disc bulging. LEFT subarticular recess disc protrusion. Disc protrusion extends into the LEFT foramen. Contact on the LEFT S1 and L5 nerve roots. MR/MR lumbar spine wo con* [id number] IMPRESSION: 1. L1 severe compression fracture with marrow edema extending into the posterio r elements. Resulting in contact on the conus. Severe central and bilateral for aminal stenosis. 2. L1 retropulsion by 8.5 mm. 3. L2-3: RIGHT foraminal disc protrusion. Disc encroachment upon the traversing RIGHT L3 nerve root with additional moderate RIGHT foraminal stenosis. 4. L3-4: Mild to moderate central, bilateral subarticular recess and foraminal stenosis. 5. L4-5: Mild to moderate central with bilateral subarticular recess and forami nal stenosis, LEFT greater than RIGHT. Disc asymmetrically bulging to the LEFT. 6. LEFT subarticular recess disc protrusion and LEFT foraminal disc protrusion. Mild disc contact on the LEFT L5 and S1 nerve roots.
== END 2025-01-07 11:44 | disposition home or self-care (01) ==
PROVIDERS: PCP Nurse Practitioner; Visit Provider Orthopaedic Surgery
DX: S32.000A Wedge compression fracture of unspecified lumbar vertebra, initial encounter for closed fracture (principal); W19.XXXA Unspecified fall, initial encounter; M48.061 Spinal stenosis, lumbar region without neurogenic claudication; R93.7 Abnormal findings on diagnostic imaging of other parts of musculoskeletal system; M51.26 Other intervertebral disc displacement, lumbar region; M51.369 Other intervertebral disc degeneration, lumbar region without mention of lumbar back pain or lower extremity pain; M40.294 Other kyphosis, thoracic region; M40.46 Postural lordosis, lumbar region; M48.05 Spinal stenosis, thoracolumbar region; M47.896 Other spondylosis, lumbar region; M24.28 Disorder of ligament, vertebrae; M51.379 Other intervertebral disc degeneration, lumbosacral region without mention of lumbar back pain or lower extremity pain; M51.27 Other intervertebral disc displacement, lumbosacral region
CPT/HCPCS: 72148

== ENCOUNTER → 2025-01-17 13:38 | Outpatient (BNVA) | payer MEDICARE, MEDICAID, SELFPAY | PROVIDERS: PCP Nurse Practitioner; Visit Provider Orthopaedic Surgery | DX: Z09 Encounter for follow-up examination after completed treatment for conditions other than malignant neoplasm (principal) | CPT/HCPCS: 99213 ==

== ENCOUNTER → 2025-02-12 10:44 | Outpatient (BNVA) | payer MEDICARE, MEDICAID, SELFPAY | PROVIDERS: PCP Nurse Practitioner; Visit Provider Orthopaedic Surgery | DX: S32.010A Wedge compression fracture of first lumbar vertebra, initial encounter for closed fracture (principal); X58.XXXA Exposure to other specified factors, initial encounter | CPT/HCPCS: 72100; 99213 ==

== ENCOUNTER 2025-02-12 11:12 | Outpatient (CLI) | payer MEDICARE, MEDICAID, SELFPAY ==
[2025-02-12 12:18] LABS: Basophils # 0.1 10^3/uL (0.0-0.1); Basophils % 1.1 %; Eosinophils # 0.1 10^3/uL (0.0-0.8); Eosinophils % 2.1 %; Hematocrit 34.5 % (36-47); Lymphocytes # 0.8 10^3/uL (0.8-4.8); Lymphocytes % 17.2 %; Mean Corpuscular HGB Conc 32.8 g/dL (30-55); Mean Corpuscular Hemoglobin 28.3 pg (27-33); Mean Corpuscular Volume 86.3 fl (85-98); Mean Platelet Volume 9.6 fL (7.4-10.4); Monocytes # 0.4 10^3/uL (0.2-0.9); Monocytes % 9.3 %; Neutrophils # 3.28 10^3/uL (1.8-7.7); Neutrophils % 69.7 %; Nucleated Red Blood Cells % 0 %; Platelet Count 197 10^3/cmm (157-399); Red Cell Distribution Width 15.1 % (12.1-15.1); White Blood Count 4.71 10^3/uL (3.29-11.43)
[2025-02-12 12:57] LABS: 25 Hydroxy Vitamin D 40 ng/mL (30-100); Alanine Aminotransferase 21 U/L (0-33); Alkaline Phosphatase 82 U/L (35-105); Anion Gap 13.3 (5-19); Aspartate Amino Transferase 31 U/L (0-32); Blood Urea Nitrogen 15 mg/dL (8-23); Calcium 9.3 mg/dL (8.5-10.5); Carbon Dioxide 26 mmol/L (22-29); Chloride 99 mmol/L (98-107); Chol HDL Ratio 3.74 mg/dL (0.0-4.40); Cholesterol 116 mg/dL (0-200); Globulin 2.6 g/dL (1.3-4.6); Glucose 92 mg/dL (65-115); HDL Cholesterol 31 mg/dL (60-100); LDL Cholesterol Calculated 61 mg/dL (50-129); Osmolality Calculated 278 mOsm/kg (285-295); Potassium 4.3 mmol/L (3.5-5.1); Sodium 134 mmol/L (136-145); Thyroid Stimulating Hormone 2.63 uIU/mL (0.27-4.20); Total Bilirubin 0.9 mg/dL (0.15-1.2); Total Protein 6.6 g/dL (6.6-8.7); Triglycerides 119 mg/dL (0-150); VLDL Cholestrol Calculation 24 mg/dL (0-30)
== END 2025-02-12 11:13 | disposition home or self-care (01) ==
PROVIDERS: PCP Nurse Practitioner; Visit Provider Nurse Practitioner
DX: E55.9 Vitamin D deficiency, unspecified (principal); I10 Essential (primary) hypertension; E03.8 Other specified hypothyroidism
CPT/HCPCS: 36415; 80053; 80061; 82306; 84443; 85025

== ENCOUNTER → 2025-04-04 13:12 | Outpatient (BNVA) | payer MEDICARE, MEDICAID, SELFPAY | PROVIDERS: PCP Nurse Practitioner; Visit Provider Orthopaedic Surgery | DX: S32.010D Wedge compression fracture of first lumbar vertebra, subsequent encounter for fracture with routine healing (principal); X58.XXXD Exposure to other specified factors, subsequent encounter | CPT/HCPCS: 72100; 99213 ==

== ENCOUNTER → 2025-04-15 12:16 | Outpatient (BNVA) | payer MEDICARE, MEDICAID, SELFPAY | PROVIDERS: PCP Nurse Practitioner; Visit Provider Nurse Practitioner Family | DX: I42.2 Other hypertrophic cardiomyopathy (principal) | CPT/HCPCS: 80053 ==

== ENCOUNTER → 2025-07-04 14:13 | Outpatient (BNVA) | payer MEDICARE, MEDICAID, SELFPAY | PROVIDERS: PCP Nurse Practitioner; Visit Provider Orthopaedic Surgery | DX: S32.010D Wedge compression fracture of first lumbar vertebra, subsequent encounter for fracture with routine healing (principal); Z01.818 Encounter for other preprocedural examination; W19.XXXD Unspecified fall, subsequent encounter; M25.562 Pain in left knee | CPT/HCPCS: 36415; 72100; 73560; 73565; 80053; 81001; 85025; 99214 ==

== ENCOUNTER → 2025-07-10 15:47 | Outpatient (BNVA) | payer MEDICARE, MEDICAID, SELFPAY | PROVIDERS: PCP Nurse Practitioner; Visit Provider Internal Medicine Cardiovascular Disease | DX: I42.2 Other hypertrophic cardiomyopathy (principal); R60.9 Edema, unspecified | CPT/HCPCS: 99214 ==

== ENCOUNTER → 2025-07-24 11:36 | Outpatient (BNVA) | payer MEDICARE, MEDICAID, SELFPAY | PROVIDERS: PCP Nurse Practitioner; Visit Provider Nurse Practitioner | DX: E55.9 Vitamin D deficiency, unspecified (principal); E03.8 Other specified hypothyroidism | CPT/HCPCS: 80053; 80061; 82306; 84443 ==

== ENCOUNTER 2025-08-30 09:50 | Outpatient (CLI) | payer MEDICARE, MEDICAID, SELFPAY ==
--- NOTE | 2025-08-30 10:00 | USCV_ITS ---
Geno Jones Age: 85 Gender: F : 1940 Exam Date: 08/30/2025 10:29 Ordering Phys: Dell Castano Technologist: KEELY [place] [facility] [place] Indication: nonrheumatic mitral valve insufficiency BP: 154 / 60 HR: 68 Rhythm: Sinus Technical Quality: Adequate MEASUREMENTS (Male / Female) Normal Values 2D ECHO LV Diastolic Diameter PLAX 4.6 cm 4.2 - 5.9 / 3.9 - 5.3 cm IVS Diastolic Thickness 1.9 cm 0.6 - 1.0 / 0.6 - 0.9 cm IVS Systolic Thickness 1.7 cm LVPW Diastolic Thickness 0.9 cm 0.6 - 1.0 / 0.6 - 0.9 cm LVPW Systolic Thickness 2.0 cm LVOT Diameter 2.0 cm LV Ejection Fraction 2D Teich 80.0 % LV Ejection Fraction MOD 4C 69.6 % LV Ejection Fraction MOD 2C 55.6 % LV Ejection Fraction 2C AL 58.2 % RA Systolic Volume 4C AL 27.4 ml RA Systolic Volume 4C MOD 28.2 ml LA Sys Volume AL 69.9 cm cubed LA Sys Volume Index AL 37.2 cm cubed/m squared IVC Diameter 1.8 cm M-MODE LA Ao Ratio MM 2.3 AV Cusp Separation MM 1.4 cm DOPPLER AV Peak Velocity 277.3 cm/s LVOT Peak Velocity 267.0 cm/s AV Area Cont Eq vti 2.8 cm squared AV Area Cont Eq pk 3.0 cm squared MV Peak Velocity 194.0 cm/s MV Area PHT 2.6 cm squared Mitral E to A Ratio 0.9 PV Peak Velocity 81.0 cm/s RV Ejection Time 0.2 s FINDINGS Left Ventricle Normal left ventricular cavity size. Normal left ventricular systolic function. Left ventricular ejection fraction is estimated at 70%. Moderate to severe basal septal hypertrophy measuring 1.9 cm with obstruction in the left ventricular outflow tract in systole with a resting maximum pressure gradient of 30 mmHg. No significant change demonstrated in the LVOT gradient with valsalva. Findings consistent with hypertrophic obstructive cardiomyopathy. Indeterminate diastolic function due to severe mitral annular calcification. Right Ventricle Normal right ventricular size and systolic function. RVSP could not be calculated due to incomplete tricuspid regurgitation velocity profile. Right Atrium Normal right atrial size. Left Atrium Mildly increased left atrial size. IA Septum Normal appearance of the interatrial septum. Mitral Valve Severe mitral annular calcification. Moderate mitral valve stenosis. Mitral valve mean gradient is 8.2 mmHg at a heart rate of 68 bpm. Mild mitral valve regurgitation. Aortic Valve Mild aortic valve calcification. No aortic valve stenosis. Mild aortic valve regurgitation. Tricuspid Valve Trace tricuspid valve regurgitation. Pulmonic Valve Mild pulmonary valve regurgitation. Pericardium No pericardial effusion. Aorta Normal size aortic root and proximal ascending aorta. IVC Normal inferior vena cava. CONCLUSIONS 1. Normal left ventricular cavity size and systolic function, EF 70%. 2. Hypertrophic obstructive cardiomyopathy with moderate to severe basal septal hypertrophy measuring 1.9 cm. Resting left ventricular outflow tract maximum pressure gradient 30 mmHg with no significant change with Valsalva. 3. Normal right ventricular size and systolic function 4. Moderate mitral valve stenosis, mild mitral valve regurgitation 5. Aortic valve sclerosis without stenosis Leonides Hameed MD, FACC (Electronically Signed) Final Date: 30 August 2025 16:05 S
== END 2025-08-30 09:51 | disposition home or self-care (01) ==
LOC: RAD 09:51
PROVIDERS: PCP Nurse Practitioner; Visit Provider Nurse Practitioner
DX: I34.0 Nonrheumatic mitral (valve) insufficiency (principal); I42.1 Obstructive hypertrophic cardiomyopathy; I34.2 Nonrheumatic mitral (valve) stenosis; I35.8 Other nonrheumatic aortic valve disorders
CPT/HCPCS: 93306